=== PATIENT | male | born 1990 | race Caucasian/White ===

== ENCOUNTER 2020-05-11 14:34 | Emergency (ER) | payer MEDICAID, SELFPAY ==
[2020-05-11 14:44] VITALS: BP 159/98; PULSE 64; RESP 16; TEMP 36.7; O2SAT 97; BMI 33.5
--- NOTE | 2020-05-11 15:03 | HMH.EDUTC ---
[facility] [place] Disposition Clinical Impression: Anxiety Disposition: Home, Self-Care Condition on Discharge: Good Instructions: Anxiety Disorders, Anxiety and Panic Attacks (Alternative Therapy), DI for Anxiety -- Adult, Sertraline Additional Instructions: Take medication as prescribed Follow up with Family Doctor if no improvement or any worsening of symptoms Return if needed Straight to ER if any life threatening symptoms or if they return or worsen Your Zoloft was called into [facility] with instructions for 25mg daily x 1 week then your dose will go up to 50mg daily Make sure to follow up with your Family Doctor and keep the appointment you was given with Jocelyne Canseco Return immediately if symptoms return or worsen Referrals: Gopi Goyal MD [Primary Care Provider] - As needed Jocelyne Canseco, MINA [Nurse Practitioner] - 07/24/20 3:00 pm Time of Disposition: 15:48 Medical Decision Making - Danny Inquiry Pt receiving controlled substance: No Danny was queried for this patient: No Vital Signs: 05/11/20 14:44 05/11/20 15:52 Temperature 98.1 F 98 F Temperature Source Oral Oral Pulse Rate 70 Pulse Rate [Radial] 64 Respiratory Rate 16 16 Blood Pressure 132/80 Blood Pressure [Right Arm] 159/98 H Blood Pressure Mean [Right Arm] 118 Blood Pressure Source Manual Cuff/ Palpation Blood Pressure Source [Right Arm] Automatic Cuff Blood Pressure Position Sitting Blood Pressure Position [Right Arm] Sitting 02 Sat by Pulse Oximetry 97 Oxygen Delivery Method Room Air Room Air - ECG Data Tracing #1 I reviewed this ECG and interpreted as documented below: ECG initial impression date: 05/11/20 ECG initial impression time: 15:21 Normal Sinus Rhythm: Yes Additional Comments: discussed with ER physician he viewed EKG and agreed NSR no acute finding - Physician Consults Physician Consulted: Jocelyne Canseco Time: 15:23 Reason -: Other (Behavioral Health) Comment/Response: Called clinic and spoke with [place] advised that Jocelyne Canseco was in a room with patient and would have her call when she come out awaiting call back [phone] Jocelyne Canseco called back and discussed patient with her and she scheduled patient in her office on Jul 24 at 3pm advised to start him on Zoloft and have him follow up with PCP next month to make sure that medication Medical Decision Narrative: Medication was discussed with pharmacy and called into [facility] patient to start zoloft 25mg daily x 1 week then 50mg daily as directed. Patient educated if he starts having any chest pain or life threatening symptoms immediately go to the ED and if he has any worsening of anxiety or thoughts of self harm or hurting others to go to the ED patient reports that he was under alot of stress with the new job and was worried that he may have COVID and loose his job [facility] [place] HPI - General Stated complaint: abd pain sob headache Time Seen by Provider: 05/11/20 15:05 Mode of Arrival: Ambulatory Source of Information: Patient Limitations: No Limitations Description of Symptoms (Recalled from Triage Doc. by RN): SOB, abd pain, chest pressure. HEENT Symptoms (Recalled from RN notes): No Resp Symptoms (Recalled from RN notes): Yes Skin Symptoms (Recalled from RN notes): No MS Symptoms (Recalled from RN notes): No Functional Status (Recalled from RN notes): wnl - History of Present Illness Provider Complaint: Patient states that he hasnt felt well for a couple days having some nasal congestion and drainage States that today he had some cramping like he was going to have diarrhea States that he read on the internet that these symptoms was associated with COVID and started to have anxiety and he began to feel a little anxious worried that he may have the virus States that at the time he was feeling so anxious and felt like when he was reading about the symptoms of COVID it made him more anxious like he couldnt get a good breath like his lungs was heav
--- NOTE | 2020-05-11 15:09 | ECG_ITS ---
APPROVED REPORT Exam: Resting ECG HR:77 bpm ECG Measurements Heart Rate 77 AXES MT 136 P 60 QRSd 108 QRS 62 QT 384 T 38 QTc 434 Conclusion Normal sinus rhythm with sinus arrhythmia Normal ECG Electronically signed by : Esdras Jj, 05/12/2020 14:33:25
[2020-05-11 15:52] VITALS: BP 132/80; PULSE 70; RESP 16; TEMP 36.6; O2SAT 98
== END 2020-05-11 15:52 | disposition home or self-care (01) ==
PROVIDERS: Emergency Provider Nurse Practitioner; PCP Family Medicine
DX: Z20.828 Contact with and (suspected) exposure to other viral communicable diseases (principal); F41.9 Anxiety disorder, unspecified; F17.210 Nicotine dependence, cigarettes, uncomplicated
CPT/HCPCS: 93005; 99201; U0003

== ENCOUNTER 2020-05-12 13:54 | Emergency (ER) | payer MEDICAID, SELFPAY ==
[2020-05-12 14:00] VITALS: BP 168/103; PULSE 98; RESP 19; TEMP 36.6; O2SAT 100; BMI 33.5
--- NOTE | 2020-05-12 14:07 | HMH.EDUTC ---
[facility] [place] Disposition Clinical Impression: Anxiety Disposition: Home, Self-Care Condition on Discharge: Good Instructions: DI for Anxiety -- Adult Additional Instructions: Follow up with Dr Goyal and Jocelyne Canseco Prescriptions: Propranolol HCl [Inderal LA] 80 mg PO DAILY 30 Days #30 cap.sa.24h Transmission Status: Received by [facility] # hydrOXYzine pamoate [Vistaril 25mg capsule] 25 mg PO Q6H PRN 10 Days #30 cap PRN Reason: Anxiety Transmission Status: Received by [facility] # Referrals: Gopi Goyal MD [Primary Care Provider] - Time of Disposition: 15:46 Medical Decision Making - Danny Inquiry Pt receiving controlled substance: No Vital Signs: 05/12/20 14:00 Temperature 97.9 F Temperature Source Oral Pulse Rate [Right Brachial] 98 H Respiratory Rate 19 Blood Pressure [Right Arm] 168/103 H Blood Pressure Mean [Right Arm] 124 Blood Pressure Source [Right Arm] Automatic Cuff Blood Pressure Position [Right Arm] Sitting 02 Sat by Pulse Oximetry 100 Oxygen Delivery Method Room Air - Lab Data Lab results reviewed: Yes: I reviewed the patient's lab results. Lab Results 05/12/20 14:30: WBC 15.8 H, RBC 5.66, Hgb 17.8, Hct 50.6, MCV 89.4, MCH 31.4 H, MCHC 35.2, RDW 12.8, Plt Count 225, MPV 8.6, Neut % (Auto) 75.9, Lymph % (Auto) 18.1, [place] % (Auto) 5.3, Eos % (Auto) 0.6, Baso % (Auto) 0.2, Neut # (Auto) 12.0 H, Lymph # (Auto) 2.9, [place] # (Auto) 0.9, Eos # (Auto) 0.1, Baso # (Auto) 0.0, Total Counted 100, Neutrophils % (Manual) 64, Lymphocytes % (Manual) 27, Monocytes % (Manual) 9, Platelet Estimate Normal, RBC Morphology Normal 05/12/20 14:30: Sodium 142, Potassium 3.8, Chloride 108 H, Carbon Dioxide 25, Anion Gap 12.8, BUN 6 L, Creatinine 0.70, Estimated Creat Clear 233, Estimated GFR 131, Est GFR ( Amer) 158, Glucose 124 H, Calcium 9.6, Total Bilirubin 0.4, AST 28, ALT 28, Alkaline Phosphatase 78, Total Protein 8.3 H, Albumin 4.7, Globulin 3.6 H, Albumin/Globulin Ratio 1.3, TSH 0.66 05/12/20 14:30: D-Dimer 0.27 Result diagrams: 05/12/20 14:30 05/12/20 14:30 Orders (Tests/Meds): ORDERS Category Date Time Status 12-lead EKG Request [ECG Request by /Barbara] Stat Y 05/12/20 14:14 Ordered - ECG Data Tracing #1 NSR without signs of ischemia ECG initial impression date: 05/12/20 ECG initial impression time: 14:25 Normal Sinus Rhythm: Yes [facility] [place] HPI - General Stated complaint: Stomach pain Time Seen by Provider: 05/12/20 14:07 - History of Present Illness Provider Complaint: Patient complains of stomach pain and anxiety. Seen yesterday at [facility] and started on Zoloft. He is anxious, jittery, short of breath. He started a new job this week and has been anxious ever since. He has no prior history of anxiety. He states that he feels short of breath, but is able to take a good breath and has no pain in his chest. He does have an upset stomach. He just feels like he can't calm down. Has appt with Jocelyne Canseco next week. No pain or swelling in either leg. No history of DVT or PE. He does smoke. Onset (ago): day(s) (5) Location: chest, abdomen Relieving factors: none Exacerbating factors: none Associated symptoms: denies other symptoms Treatments prior to arrival: none - Related Data Previous Rx's Medication Instructions Recorded Propranolol HCl [Inderal LA] 80 mg PO DAILY 30 Days #30 05/12/20 cap.sa.24h hydrOXYzine pamoate [Vistaril 25mg 25 mg PO Q6H PRN 10 Days #30 cap 05/12/20 capsule] Allergies Allergy/AdvReac Type Severity Reaction Status Date / Time No Known Allergies Allergy Verified 05/12/20 14:14 [facility] History - Hepatitis A Screen Attestation statement:: This patient has been screened for Hepatitis A risk factors. I have reviewed the patient's past medical history: Yes - Social History Smoking Status: Current every day smoker Tobacco Type: cigarettes # Packs/Day (cigarettes): 1 Alcohol Intake: nev
--- NOTE | 2020-05-12 14:24 | ECG_ITS ---
APPROVED REPORT Exam: Resting ECG HR:87 bpm ECG Measurements Heart Rate 87 AXES IL 144 P 63 QRSd 100 QRS 53 QT 370 T 49 QTc 445 Conclusion Normal sinus rhythm Normal ECG Electronically signed by : Blas Lux, 05/22/2020 16:28:40
[2020-05-12 14:50] LABS: Basophils % 0.2 % (0.1-2.0); Eosinophils # 0.1 K/mm3 (0.0-0.4); Eosinophils % 0.6 % (0.1-12.0); Hematocrit 50.6 % (42.0-52.0); Hemoglobin 17.8 g/dL (14.1-18.0); Lymphocytes # 2.9 K/mm3 (0.7-4.5); Lymphocytes % 18.1 % (10-50); Mean Corpuscular HGB Conc 35.2 g/dL (31.8-35.4); Mean Corpuscular Hemoglobin 31.4 pg (27.0-31.2); Mean Corpuscular Volume 89.4 fl (80-94); Mean Platelet Volume 8.6 fl (7.4-10.4); Monocytes # 0.9 K/mm3 (0.1-1.0); Monocytes % 5.3 % (1.7-9.3); Neutrophils % 75.9 % (37.0-80.0); Platelet Count 225 K/mm3 (142-424); Red Blood Count 5.66 M/mm3 (4.60-6.20); Red Cell Distribution Width 12.8 % (11.5-17.5); White Blood Count 15.8 K/mm3 (4.8-10.8)
[2020-05-12 14:52] LABS: MANUAL DIFFERENTIAL MANUAL DIFFERENTIAL (MANUAL DIFF)
[2020-05-12 14:57] LABS: Alanine Aminotransferase 28 U/L (12-78); Albumin Level 4.7 g/dl (3.5-5.0); Albumin/Globulin Ratio 1.3 (1.1-1.8); Alkaline Phosphatase 78 U/L (38-126); Anion Gap 12.8 mEq/L (5-15); Aspartate Amino Transferase 28 U/L (17-59); Bilirubin,Total 0.4 mg/dl (0.2-1.3); Blood Urea Nitrogen 6 mg/dl (9-20); Calcium 9.6 mg/dl (8.4-10.2); Carbon Dioxide 25 mmol/L (22.0-30.0); Chloride 108 mmol/L (98-107); Creatinine Clearance Estimated 233 mL/min (50-200); Estimated Glomerular Filt Rate 131 ml/min (>60); GFR (African American) 158 ML/MIN (>60); Globulin 3.6 g/dL (1.3-3.2); Glucose 124 mg/dl (74-100); Potassium 3.8 mmoL/L (3.5-5.1); Sodium 142 mmol/L (136-145); Total Protein,Serum 8.3 g/dl (6.3-8.2)
[2020-05-12 15:02] LABS: D-Dimer 0.27 ug/mL (0.15-8.0); Lymphocytes % 27 % (10-50); Monocytes % 9 % (2-9); Neutrophils % 64 % (42-76); Total Cells Counted 100
[2020-05-12 15:03] LABS: Platelet Estimate Normal; RBC Morphology Normal
[2020-05-12 15:28] LABS: Thyroid Stimulating Hormone 0.66 uIU/mL (0.465-4.68)
[2020-05-12 15:48] VITALS: BP 168/103; PULSE 98; RESP 19; TEMP 36.6; O2SAT 100
== END 2020-05-12 15:50 | disposition home or self-care (01) ==
PROVIDERS: Emergency Provider Physician Assistant; PCP Family Medicine
DX: F41.9 Anxiety disorder, unspecified (principal); R10.9 Unspecified abdominal pain; R06.02 Shortness of breath; F17.210 Nicotine dependence, cigarettes, uncomplicated
CPT/HCPCS: 80053; 84443; 85007; 85025; 85378; 93005; 99201

== ENCOUNTER 2020-05-13 11:13 | Emergency (ER) | payer MEDICAID, SELFPAY ==
--- NOTE | 2020-05-13 11:09 | ECG_ITS ---
APPROVED REPORT Exam: Resting ECG HR:76 bpm ECG Measurements Heart Rate 76 AXES DC 160 P 59 QRSd 94 QRS 44 QT 370 T 58 QTc 416 Conclusion Normal sinus rhythm with sinus arrhythmia Normal ECG Electronically signed by : Blas Lux, 05/19/2020 11:39:47
[2020-05-13 11:15] VITALS: BP 155/100; PULSE 78; RESP 15; TEMP 37; O2SAT 96; BMI 33.5
--- NOTE | 2020-05-13 11:18 | XR_ITS ---
PROCEDURE: XR CHEST 2V CLINICAL HISTORY: chest pain COMPARISON: No exams were available for comparison FINDINGS: The cardiomediastinal silhouette and pulmonary vascularity are within normal limits. The lungs are clear without infiltrates, suspicious nodules, or pleural effusions. No acute bony abnormalities. IMPRESSION: No acute findings. Dictated by: Chris Lopez MD 05/13/2020 14:44 Chris Lopez MD in [place] 05/13/2020 14:44
--- NOTE | 2020-05-13 11:21 | HMH.EDCP ---
ED Disposition Clinical Impression: Atypical chest pain, Gastritis Disposition: Home, Self-Care Condition on Discharge: Good Instructions: DI for Atypical Chest Pain Prescriptions: Ondansetron [Zofran 4mg ODT] 4 mg PO TIDP PRN #10 tab PRN Reason: Nausea Transmission Status: Pending to [facility] #[id number] Referrals: Gopi Goyal MD [Primary Care Provider] - - Critical Care Critical Care Time: No Attestation: On , the high probability of a clinically significant, sudden or life threatening deterioration of the following system(s) required my full and direct attention, intervention and personal management. The time I documented below is in addition to time spent performing reported procedures but includes the following listed in this critical care notation. Medical Decision Making - Medical Records Medical records reviewed: Yes: I reviewed the patient's medical records. - Danny Inquiry Pt receiving controlled substance: No Vital Signs: 05/13/20 11:15 05/13/20 11:53 05/13/20 12:38 Temperature 98.6 F Temperature Source Oral Pulse Rate [Right Radial] 78 57 L 48 L Respiratory Rate 15 20 17 Blood Pressure [Right Arm] 155/100 H 130/81 149/103 H Blood Pressure Mean [Right Arm] 118 97 118 Blood Pressure Source [Right Arm] Automatic Cuff Blood Pressure Position [Right Arm] Sitting 02 Sat by Pulse Oximetry 96 98 98 Oxygen Delivery Method Room Air Room Air - Lab Data Lab Results 05/13/20 11:25: WBC 15.8 H, RBC 5.52, Hgb 17.4, Hct 50.5, MCV 91.4, MCH 31.6 H, MCHC 34.6, RDW 13.2, Plt Count 227, MPV 8.4, Neut % (Auto) 74.5, Lymph % (Auto) 18.7, [place] % (Auto) 6.0, Eos % (Auto) 0.5, Baso % (Auto) 0.3, Neut # (Auto) 11.8 H, Lymph # (Auto) 3.0, [place] # (Auto) 1.0, Eos # (Auto) 0.1, Baso # (Auto) 0.1, Total Counted 100, Neutrophils % (Manual) 75, Lymphocytes % (Manual) 22, Monocytes % (Manual) 3, Platelet Estimate Normal, RBC Morphology Normal 05/13/20 11:25: Troponin I < 0.01 05/13/20 11:25: Sodium 142, Potassium 3.8, Chloride 107, Carbon Dioxide 26, Anion Gap 12.8, BUN 7 L, Creatinine 0.70, Estimated Creat Clear 233, Estimated GFR 131, Est GFR ( Amer) 158, Glucose 130 H, Calcium 9.3 05/13/20 11:25: NT-Pro-B Natriuret Pep 74.9 Result diagrams: 05/13/20 11:25 05/13/20 11:25 Orders (Tests/Meds): ED MEDICATIONS Discontinued Medications Generic Name Dose Route Start Last Admin Trade Name Freq PRN Reason Stop Dose Admin Ketorolac Tromethamine 30 mg 05/13/20 11:21 05/13/20 11:37 Ketorolac 30mg/Ml Vial IM 05/13/20 11:22 Not Given ONCE ONE Ketorolac Tromethamine 30 mg 05/13/20 11:36 05/13/20 11:37 Ketorolac 30mg/Ml Vial IV 05/13/20 11:37 30 mg ONCE ONE Administration Ondansetron HCl 4 mg 05/13/20 11:21 05/13/20 11:37 Ondansetron 4mg/2ml Vial IV 05/13/20 11:22 4 mg ONCE ONE Administration Promethazine HCl 25 mg 05/13/20 12:29 05/13/20 12:34 Promethazine Hcl 25mg/Ml 1ml Vial IV 05/13/20 12:30 25 mg ONCE ONE Administration Sodium Chloride 25 ml 05/13/20 12:29 05/13/20 12:34 Sodium Chloride 0.9% 25ml Bag IV 05/13/20 12:30 25 ml ONCE ONE Administration ORDERS Category Date Time Status XR chest 2V Stat Exams 05/13/20 11:18 Ordered Troponin I Q3H Lab 05/13/20 14:30 Ordered Troponin I Q3H Lab 05/13/20 17:30 Ordered - Radiology Data #1 Image(s): Chest Image Reviewed: Yes I reviewed the patient's radiology results, Yes I reviewed the patient's radiology image Preliminary Findings: Normal/NAD - ECG Data Tracing #1 Normal ventricular rate of 76 bpm. Normal FL interval of 160 ms. Normal QTC. Sinus rhythm with nonspecific ST changes. ECG initial impression date: 05/13/20 ECG initial impression time: 11:11 - Reevaluation(s) Time: 13:08 Reevaluation #1: On reevaluation, the patient is feeling much better. Negative troponin. Negative D-dimer. EKG does not show any significant changes. The luna
--- NOTE | 2020-05-13 11:46 | PC.NURSE ---
pt return from rad
[2020-05-13 11:53] VITALS: BP 130/81; PULSE 57; RESP 20; O2SAT 98
[2020-05-13 12:04] LABS: Chloride 107 mmol/L (98-107); Potassium 3.8 mmoL/L (3.5-5.1); Sodium 142 mmol/L (136-145)
[2020-05-13 12:05] LABS: Basophils # 0.1 K/mm3 (0-0.2); Basophils % 0.3 % (0.1-2.0); Eosinophils # 0.1 K/mm3 (0.0-0.4); Eosinophils % 0.5 % (0.1-12.0); Hematocrit 50.5 % (42.0-52.0); Hemoglobin 17.4 g/dL (14.1-18.0); Lymphocytes % 18.7 % (10-50); Mean Corpuscular HGB Conc 34.6 g/dL (31.8-35.4); Mean Corpuscular Hemoglobin 31.6 pg (27.0-31.2); Mean Corpuscular Volume 91.4 fl (80-94); Mean Platelet Volume 8.4 fl (7.4-10.4); Neutrophils # 11.8 K/mm3 (1.8-7.8); Neutrophils % 74.5 % (37.0-80.0); Platelet Count 227 K/mm3 (142-424); Red Blood Count 5.52 M/mm3 (4.60-6.20); Red Cell Distribution Width 13.2 % (11.5-17.5); White Blood Count 15.8 K/mm3 (4.8-10.8)
[2020-05-13 12:06] LABS: MANUAL DIFFERENTIAL MANUAL DIFFERENTIAL (MANUAL DIFF)
[2020-05-13 12:07] LABS: Anion Gap 12.8 mEq/L (5-15); Blood Urea Nitrogen 7 mg/dl (9-20); Carbon Dioxide 26 mmol/L (22.0-30.0); Creatinine Clearance Estimated 233 mL/min (50-200); Estimated Glomerular Filt Rate 131 ml/min (>60); GFR (African American) 158 ML/MIN (>60); Glucose 130 mg/dl (74-100)
[2020-05-13 12:08] LABS: Calcium 9.3 mg/dl (8.4-10.2)
[2020-05-13 12:18] LABS: Lymphocytes % 22 % (10-50); Monocytes % 3 % (2-9); Neutrophils % 75 % (42-76); Platelet Estimate Normal; RBC Morphology Normal; Total Cells Counted 100
[2020-05-13 12:38] VITALS: BP 149/103; PULSE 48; RESP 17; O2SAT 98
[2020-05-13 12:42] LABS: NT Pro Brain Natriuretic Pep. 74.9 pg/mL (0-125)
[2020-05-13 12:46] LABS: Troponin I < 0.01 ng/ml (0.00-0.034)
[2020-05-13 13:38] VITALS: BP 128/90; PULSE 56; RESP 16; TEMP 36.8; O2SAT 98
== END 2020-05-13 13:39 | disposition home or self-care (01) ==
PROVIDERS: Emergency Provider Emergency Medicine; PCP Family Medicine
DX: R07.89 Other chest pain (principal); K52.9 Noninfective gastroenteritis and colitis, unspecified; F17.210 Nicotine dependence, cigarettes, uncomplicated
CPT/HCPCS: 71046; 80048; 83880; 84484; 85007; 85025; 93005; 96374; 96375; 99283; J2405

== ENCOUNTER 2020-07-07 10:20 | Emergency (ER) | payer MEDICAID, SELFPAY ==
[2020-07-07 10:30] VITALS: BP 158/89; PULSE 81; RESP 20; TEMP 36.9; O2SAT 98; BMI 37.6
--- NOTE | 2020-07-07 10:37 | HMH.EDUTC ---
[facility] [place] Clinical Impression: Exposure to COVID-19 virus Disposition: Home, Self-Care Condition on Discharge: Good Instructions: Preventing the Spread of Coronavirus Discharge Instructions Additional Instructions: You have been tested for COVID19. Please isolate as if you are positive until your results are received. Referrals: Roro Vela APRN [Primary Care Provider] - Time of Disposition: 10:44 Medical Decision Making - Danny Inquiry Pt receiving controlled substance: No Orders (Tests/Meds): ORDERS Category Date Time Status Covid-19 Nasal PCR Sendout P&C Routine Lab 07/07/20 10:24 Ordered [facility] [place] HPI - General Stated complaint: Covid test Time Seen by Provider: 07/07/20 10:37 - History of Present Illness Provider Complaint: Patient states that coworker tested positive for COVID19 last week and he would like to be tested. Relieving factors: none Exacerbating factors: none Associated symptoms: denies other symptoms Treatments prior to arrival: none - Related Data Home Medications Medication Instructions Recorded Confirmed Propranolol HCl [Inderal LA] 80 mg PO DAILY 05/13/20 05/13/20 Previous Rx's Medication Instructions Recorded hydrOXYzine pamoate [Vistaril 25mg 25 mg PO Q6H PRN 10 Days #30 cap 05/12/20 capsule] Ondansetron [Zofran 4mg ODT] 4 mg PO TIDP PRN #10 tab 05/13/20 Allergies Allergy/AdvReac Type Severity Reaction Status Date / Time No Known Allergies Allergy Verified 05/13/20 11:21 [facility] History - Hepatitis A Screen Attestation statement:: This patient has been screened for Hepatitis A risk factors. I have reviewed the patient's past medical history: Yes Medical History: Denies:: Diabetes Mellitus Type 1, Diabetes Mellitus Type 2 - Social History Smoking Status: Current every day smoker Tobacco Type: cigarettes # Packs/Day (cigarettes): 1 Alcohol Intake: never Occupational Status: employed ROS Obtained: Yes All systems reviewed & no additional complaints Physical Exam - General General appearance: alert, in no apparent distress - Head Head exam: normocephalic - Eye Eye exam: Present: PERRL - ENT ENT exam: Present: normal oropharynx - Respiratory Respiratory exam: Present: normal lung sounds bilaterally - Cardiovascular Cardiovascular exam: Present: regular rate, normal rhythm - Neurological Exam Neurological exam: Present: alert, oriented X3 - Psychiatric Psychiatric exam: Present: normal affect, normal mood - Skin Skin exam: Present: warm, dry
[2020-07-07 10:58] VITALS: BP 158/89; PULSE 81; RESP 20; TEMP 36.9; O2SAT 98
[2020-07-08 10:58] LABS: Covid-19 Nasal PCR Sendout P&C NEGATIVE
== END 2020-07-07 11:00 | disposition home or self-care (01) ==
PROVIDERS: Emergency Provider Physician Assistant; PCP Nurse Practitioner Family
DX: Z20.828 Contact with and (suspected) exposure to other viral communicable diseases (principal); F17.210 Nicotine dependence, cigarettes, uncomplicated
CPT/HCPCS: 99201; U0004

== ENCOUNTER → 2020-08-09 09:39 | Outpatient (CLI) | payer BC, OTHER, SELFPAY ==
--- NOTE | 2020-08-09 09:53 | CT_ITS ---
PROCEDURE: CT ABDOMEN PELVIS W CON CLINICAL INDICATION: ABD PAIN LUQ Luq pain x2 months, nausia Iso 370, 75 ml COMPARISON: No exams were available for comparison TECHNIQUE: IV Contrast: 75ML Isovue 370 Oral Contrast None Axial images obtained with sagittal and coronal reformats. All CT scans at the facility use one or more dose reduction, viz: automated exposure control, ma/kV adjustment per patient size (including targeted exams where dose is matched to indication, i.e. head), or iterative reconstruction technique. FINDINGS: LOWER THORAX: No acute finding ABDOMEN & PELVIS: The liver, spleen adrenal glands pancreas and gallbladder have an unremarkable appearance. There is a nonobstructing 3 mm stone in the mid polar region of the left kidney. There are few scattered small mesenteric lymph nodes. No intestinal obstruction or free air. The appendix is prominent measuring 8 mm in diameter but is air-filled and with no stranding of the periappendiceal fat. There is mild thickening of the descending and sigmoid colon and rectosigmoid region. No evidence of diverticulitis. There are few small diverticula present. No acute bony findings. There are few scattered small inguinal nodes. IMPRESSION: Mild thickening of the descending and sigmoid colon and rectosigmoid region. This may only be due to nondistention versus mild colitis. 1. Nonobstructing left nephrolithiasis. Dictated by: Chris Lopez MD 08/10/2020 12:35 Chris Lopez MD in [place] 08/10/2020 12:35
== END ==
PROVIDERS: PCP Nurse Practitioner Family; Visit Provider Physician Assistant
DX: R10.12 Left upper quadrant pain (principal)
CPT/HCPCS: 74177; Q9967

== ENCOUNTER 2020-08-29 13:30 | Emergency (ER) | payer BC, OTHER, SELFPAY ==
[2020-08-29 13:45] VITALS: BP 180/106; PULSE 105; RESP 14; TEMP 37.3; O2SAT 98; BMI 32.1
--- NOTE | 2020-08-29 14:04 | HMH.EDUTC ---
[facility] [place]: [place] Disposition: Home, Self-Care Condition on Discharge: Good Instructions: Metronidazole, DI for Colitis Additional Instructions: Drink plenty of fluids. Take tylenol for pain or fever. Return and go to the er if you have worsening symptoms. Follow up with your regular doctor. Follow up with the GI specialist as scheduled. GO TO THE ER FOR ANY WORSENING SYMPTOMS DO NOT DRINK ALCOHOL WHILE YOU ARE ON THE METRONIDAZOLE (FLAGYL) . Prescriptions: Ciprofloxacin HCl [Ciprofloxacin 500mg Tab] 500 mg PO BID 10 Days #20 tab Transmission Status: Received by [facility] # metroNIDAZOLE [Metronidazole] 250 mg PO TID 10 Days #30 tab Transmission Status: Received by [facility] # Referrals: Eleonora Brown PA [Primary Care Provider] - Forms: Work/School Release Time of Disposition: 14:21 Medical Decision Making - Medical Records Medical records reviewed: No: I reviewed the patient's medical records. - Danny Inquiry Pt receiving controlled substance: No Vital Signs: 08/29/20 13:45 08/29/20 14:24 Temperature 99.1 F 99.2 F Temperature Source Oral Oral Pulse Rate 105 H Pulse Rate [Right] 105 H Respiratory Rate 14 16 Blood Pressure 175/102 H Blood Pressure [Right Arm] 180/106 H Blood Pressure Mean [Right Arm] 130 Blood Pressure Source Automatic Cuff Blood Pressure Source [Right Arm] Automatic Cuff Blood Pressure Position Sitting Blood Pressure Position [Right Arm] Sitting 02 Sat by Pulse Oximetry 98 Oxygen Delivery Method Room Air [facility] [place] - General Stated complaint: possible colitis Time Seen by Provider: 08/29/20 13:50 Mode of Arrival: Ambulatory Source of Information: Patient Limitations: No Limitations Description of Symptoms (Recalled from Triage Doc. by RN): abd pain. pt states he saw his family dr for colitis. it started again last nigt. he says antibiotics helped. he had a GI appointment yesterday that he was unable to make. HEENT Symptoms (Recalled from RN notes): No Resp Symptoms (Recalled from RN notes): No Skin Symptoms (Recalled from RN notes): No MS Symptoms (Recalled from RN notes): No Functional Status (Recalled from RN notes): na - History of Present Illness Provider Complaint: He states that since yesterday he has had abdominal discomfort. He states that this feels just like he did when he had colitis around 3 weeks ago. At that time a ct scan of abd/pelvis was done and it did show some colitis. He was treated with an antibiotic then and he got better very quickly. Now he states that his symptoms are returning. He could not get in with his pcp today. He has an appt with GI specialist coming up. - Related Data Home Medications Medication Instructions Recorded Confirmed Propranolol HCl [Inderal LA] 80 mg PO DAILY 05/13/20 05/13/20 Previous Rx's Medication Instructions Recorded hydrOXYzine pamoate [Vistaril 25mg 25 mg PO Q6H PRN 10 Days #30 cap 05/12/20 capsule] Ondansetron [Zofran 4mg ODT] 4 mg PO TIDP PRN #10 tab 05/13/20 Ciprofloxacin HCl [Ciprofloxacin 500 mg PO BID 10 Days #20 tab 08/29/20 500mg Tab] metroNIDAZOLE [Metronidazole] 250 mg PO TID 10 Days #30 tab 08/29/20 Allergies Allergy/AdvReac Type Severity Reaction Status Date / Time No Known Allergies Allergy Verified 08/29/20 13:43 - Worker's Comp Is this a Worker's Comp case?: No [facility] History - Hepatitis A Screen Drug use history?: No High risk sexual behaviors?: No History of sexually transmitted infection?: No Currently employed?: No Childcare worker?: No Do you have indoor plumbing?: Yes Do you have electricity?: Yes Attestation statement:: This patient has been screened for Hepatitis A risk factors. I have reviewed the patient's past medical history: Yes Medical History: Denies:: Diabetes Mellitus Type 1, Diabetes Mellitus Type 2 - Social History Smoking Status: Current every
[2020-08-29 14:24] VITALS: BP 175/102; PULSE 105; RESP 16; TEMP 37.3
== END 2020-08-29 14:25 | disposition home or self-care (01) ==
PROVIDERS: Emergency Provider Nurse Practitioner Family; PCP Physician Assistant
DX: K52.9 Noninfective gastroenteritis and colitis, unspecified (principal); F17.210 Nicotine dependence, cigarettes, uncomplicated; R03.0 Elevated blood-pressure reading, without diagnosis of hypertension
CPT/HCPCS: 99202; G0463

== ENCOUNTER 2020-11-29 10:18 | Emergency (ER) | payer OTHER, SELFPAY ==
[2020-11-29 10:39] VITALS: BP 140/91; PULSE 78; RESP 19; TEMP 37; O2SAT 100; BMI 32.1
--- NOTE | 2020-11-29 11:17 | HMH.EDUTC ---
[facility] [place] Disposition Clinical Impression: Colitis Disposition: Home, Self-Care Condition on Discharge: Good Instructions: DI for Colitis Additional Instructions: Drink plenty of fluids. Take tylenol or ibuprofen for pain or fever. Take the medications as directed. Follow up with your regular doctor. GO TO THE ER FOR ANY WORSENING SYMPTOMS Prescriptions: Ondansetron [Zofran 4mg ODT] 4 mg PO Q8HP PRN #20 tab.rapdis PRN Reason: Nausea Transmission Status: Received by [facility] # Ciprofloxacin HCl [Cipro 500mg Tab] 500 mg PO BID 10 Days #20 tab Transmission Status: Received by [facility] # metroNIDAZOLE [Flagyl 500mg Tablet] 500 mg PO TID 10 Days #30 tab Transmission Status: Received by [facility] # Referrals: Eleonora Brown PA [Primary Care Provider] - Forms: Work/School Release Time of Disposition: 11:20 Medical Decision Making - Medical Records Medical records reviewed: No: I reviewed the patient's medical records. - Danny Inquiry Pt receiving controlled substance: No Vital Signs: 11/29/20 10:39 11/29/20 11:20 Temperature 98.6 F 98.6 F Temperature Source Oral Pulse Rate 78 Pulse Rate [Left] 78 Respiratory Rate 19 19 Blood Pressure 140/91 H Blood Pressure [Right Arm] 140/91 H Blood Pressure Mean [Right Arm] 107 02 Sat by Pulse Oximetry 100 [facility] [place] HPI - General Stated complaint: possible colitis Time Seen by Provider: 11/29/20 11:17 Mode of Arrival: Ambulatory Source of Information: Patient Limitations: No Limitations Description of Symptoms (Recalled from Triage Doc. by RN): collitis flare up needing antibiotis HEENT Symptoms (Recalled from RN notes): No Resp Symptoms (Recalled from RN notes): No Skin Symptoms (Recalled from RN notes): No MS Symptoms (Recalled from RN notes): No Functional Status (Recalled from RN notes): wnl - History of Present Illness Provider Complaint: He states that he has a history of getting colitis. For the past 2 days he has had mild abdominal discomfort, diarrhea and abdominal cramping. He denies any fever or chills. - Related Data Home Medications Medication Instructions Recorded Confirmed Propranolol HCl [Inderal LA] 80 mg PO DAILY 05/13/20 05/13/20 Previous Rx's Medication Instructions Recorded hydrOXYzine pamoate [Vistaril 25mg 25 mg PO Q6H PRN 10 Days #30 cap 05/12/20 capsule] Ondansetron [Zofran 4mg ODT] 4 mg PO TIDP PRN #10 tab 05/13/20 Ciprofloxacin HCl [Ciprofloxacin 500 mg PO BID 10 Days #20 tab 08/29/20 500mg Tab] metroNIDAZOLE [Metronidazole] 250 mg PO TID 10 Days #30 tab 08/29/20 Ciprofloxacin HCl [Cipro 500mg 500 mg PO BID 10 Days #20 tab 11/29/20 Tab] Ondansetron [Zofran 4mg ODT] 4 mg PO Q8HP PRN #20 tab.rapdis 11/29/20 metroNIDAZOLE [Flagyl 500mg 500 mg PO TID 10 Days #30 tab 11/29/20 Tablet] Allergies Allergy/AdvReac Type Severity Reaction Status Date / Time No Known Allergies Allergy Verified 11/29/20 11:01 - Worker's Comp Is this a Worker's Comp case?: No [facility] History - Hepatitis A Screen Drug use history?: No High risk sexual behaviors?: No History of sexually transmitted infection?: No Currently employed?: No Childcare worker?: No Do you have indoor plumbing?: Yes Do you have electricity?: Yes Attestation statement:: This patient has been screened for Hepatitis A risk factors. I have reviewed the patient's past medical history: Yes Medical History: Denies:: Diabetes Mellitus Type 1, Diabetes Mellitus Type 2 - Social History Smoking Status: Current every day smoker Tobacco Type: cigarettes # Packs/Day (cigarettes): 1 Alcohol Intake: never Occupational Status: employed ROS Obtained: Yes All systems reviewed & no additional complaints - Constitutional Constitutional: Reports chills, Denies fever(s), Reports poor appetite, Reports malaise - Eyes Eyes: Denies eye discharge - ENT Ears,
[2020-11-29 11:20] VITALS: BP 140/91; PULSE 78; RESP 19; TEMP 37; O2SAT 100
== END 2020-11-29 11:31 | disposition home or self-care (01) ==
PROVIDERS: Emergency Provider Nurse Practitioner Family; PCP Physician Assistant
DX: K52.9 Noninfective gastroenteritis and colitis, unspecified (principal); F17.210 Nicotine dependence, cigarettes, uncomplicated
CPT/HCPCS: 99202; G0463

== ENCOUNTER 2020-12-20 10:43 | Emergency (ER) | payer OTHER, SELFPAY ==
[2020-12-20 11:24] VITALS: BP 151/84; PULSE 80; RESP 16; TEMP 36.8; O2SAT 99; BMI 29.8
--- NOTE | 2020-12-20 12:02 | HMH.EDUTC ---
[facility] [place] Clinical Impression: Diarrhea Qualifiers: Diarrhea type: unspecified type Qualified Code(s): R19.7 - Diarrhea, unspecified Disposition: Home, Self-Care Condition on Discharge: Good Instructions: Diarrhea, DI for Nausea -- Adult Additional Instructions: Drink extra fluids with and between meals. If you have difficulty drinking, try very small amounts of water or suck on ice chips. ? Avoid fruit juices, as these do not replace minerals and can actually increase diarrhea. ? Children and adults can use sports drinks to replenish electrolytes. Younger children and infants should use products formulated for children, like oral rehydration solutions. ? Eat food in small amounts and let your stomach recover. ? Get lots of rest. You may feel tired or weak. ? No greasy or fried foods for the next 24-48 hours BRAT diet Bananas Rice Apples and [place] ? Make sure to drink plenty of liquids ? Return if needed ? Straight to ER if any life threatening symptoms ? Zofran as prescribed ? You was given an outpatient order for diarrhea panel, please collect specimen and bring back to outpatient lab then call back to the [facility] or follow up with family doctor for results ? Follow up with family doctor in the next 48-72 hours if no improvement or any worsening of symptoms Prescriptions: Dicyclomine HCl [Bentyl 10mg capsule] 10 mg PO TID PRN #15 cap PRN Reason: Cramping Transmission Status: Received by [facility] #[id number] Referrals: Eleonora Brown PA [Primary Care Provider] - As needed (Follow up if no improvement or any worsening of symptoms) Forms: Work/School Release Time of Disposition: 12:18 Medical Decision Making - Danny Inquiry Pt receiving controlled substance: No Danny was queried for this patient: No Vital Signs: 12/20/20 11:24 12/20/20 12:18 Temperature 98.3 F 98 F Temperature Source Oral Pulse Rate 85 Pulse Rate [Right] 80 Respiratory Rate 16 16 Blood Pressure 149/85 H Blood Pressure [Right Arm] 151/84 H Blood Pressure Mean [Right Arm] 106 Blood Pressure Source [Right Arm] Automatic Cuff 02 Sat by Pulse Oximetry 99 Oxygen Delivery Method Room Air Medical Decision Narrative: Discussed transfer to the ED with patient if he was having abdominal pain and patient declined unknown if he may have been exposed to someone with the stomach virus Discussed with patient that we could order diarrhea panel due to recent antibiotic use and if negative follow up with PCP for further [facility] [place] - General Stated complaint: vomiting,nausea Time Seen by Provider: 12/20/20 12:02 Mode of Arrival: Ambulatory Source of Information: Patient Limitations: No Limitations Description of Symptoms (Recalled from Triage Doc. by RN): pt dx with colitis in june. pt was seen here 2wks ago and given a 10 day antibiotic. once finished pt has c/o abd pain in all quadrents. pain is 5/10 and feels like cramps. HEENT Symptoms (Recalled from RN notes): No Resp Symptoms (Recalled from RN notes): No Skin Symptoms (Recalled from RN notes): No MS Symptoms (Recalled from RN notes): No Functional Status (Recalled from RN notes): na - History of Present Illness Provider Complaint: Patient state that he had Colitis in [facility] States that he came in a couple weeks ago and was treated again for Colitis and he has since finished the medication State that for the last couple of days he has been having diarrhea and cramping in his abdomen States that not sure if he may have been around someone with the stomach bug or his colitis acting up again. - Related Data Home Medications Medication Instructions Recorded Confirmed Propranolol HCl [Inderal LA] 80 mg PO DAILY 05/13/20 05/13/20 Previous Rx's Medication Instructions Recorded hydrOXYzine pamoate [Vistaril 25mg 25 mg PO Q6H PRN 10 Days #30 cap 05/12/20 capsule] Ondansetron [Zofran 4mg ODT] 4 mg PO TIDP PRN #10 tab 05/13/20 Ciprofloxacin HCl [Ciprofloxacin 500 mg
[2020-12-20 12:18] VITALS: BP 149/85; PULSE 85; RESP 16; TEMP 36.6
== END 2020-12-20 12:33 | disposition home or self-care (01) ==
PROVIDERS: Emergency Provider Nurse Practitioner; PCP Physician Assistant
DX: R11.2 Nausea with vomiting, unspecified (principal); R19.7 Diarrhea, unspecified; F17.210 Nicotine dependence, cigarettes, uncomplicated
CPT/HCPCS: 99202; G0463

== ENCOUNTER → 2020-12-21 12:49 | Outpatient (CLI) | payer OTHER, SELFPAY ==
[2020-12-21 12:55] LABS: Adenovirus F 40/41, stool Not Detected (NotDetected); Astrovirus Not Detected (NotDetected); Campylobacter Not Detected (NotDetected); Clostridium Difficile A/B, PCR Not Detected (NotDetected); Cryptosporidium Not Detected (NotDetected); Cyclospora Cayetanesis Not Detected (NotDetected); Entamoeba histolytica Not Detected (NotDetected); Enteroaggregative E coli Not Detected (NotDetected); Enteropathogenic E coli Not Detected (NotDetected); Enterotoxigenic E coli Not Detected (NotDetected); Giardia lamblia Not Detected (NotDetected); Norovirus Not Detected (NotDetected); Plesimonas Shigalloides, PCR Not Detected (NotDetected); Rotavirus A Not Detected (NotDetected); Salmonella, PCR Not Detected (NotDetected); Sapovirus Not Detected (NotDetected); Shiga-like toxin E coli Not Detected (NotDetected); Shigella Enterovasive E coli Not Detected (NotDetected); Vibrio Cholerae Not Detected (NotDetected); Vibrio, PCR Not Detected (NotDetected); Yersinia Entercolitica, PCR Not Detected (NotDetected)
== END ==
PROVIDERS: Visit Provider Nurse Practitioner
DX: R19.7 Diarrhea, unspecified (principal)
CPT/HCPCS: 87507

== ENCOUNTER 2021-01-05 15:59 | Emergency (ER) | payer OTHER, SELFPAY ==
[2021-01-05 16:00] VITALS: BP 128/72; PULSE 62; RESP 18; TEMP 36.8; O2SAT 95; BMI 32.5
--- NOTE | 2021-01-05 16:54 | HMH.EDUTC ---
[facility] [place] Disposition Clinical Impression: Cellulitis of right hand, Abscess of right hand Disposition: Home, Self-Care Condition on Discharge: Good Instructions: Cellulitis, Boil Additional Instructions: Keep the affected area clean and dry. Follow up with your regular doctor. Take the antibiotics as directed and apply the topical antibiotics as directed. Apply warm wet compresses to the affected area three or four times per day. GO TO THE ER FOR ANY WORSENING SYMPTOMS Prescriptions: Sulfamethoxazole/Trimethoprim [Bactrim DS tablet] 1 each PO BID 10 Days #20 tab Transmission Status: Received by [facility] #[id number] Mupirocin [Bactroban 2% Ointment 22gm tube] 1 applicatio TP TID 7 Days #1 tube Transmission Status: Received by [facility] #[id number] cephALEXin [cephALEXin 500mg capsule] 500 mg PO Q6H 10 Days #40 cap Transmission Status: Received by [facility] #[id number] Referrals: Eleonora Brown PA [Primary Care Provider] - Forms: Work/School Release Time of Disposition: 17:12 Medical Decision Making - Medical Records Medical records reviewed: No: I reviewed the patient's medical records. - Danny Inquiry Pt receiving controlled substance: No Vital Signs: 01/05/21 16:00 01/05/21 17:10 Temperature 98.2 F 98.2 F Temperature Source Oral Pulse Rate 62 Pulse Rate [Right Brachial] 62 Respiratory Rate 18 18 Blood Pressure 128/72 Blood Pressure [Right Arm] 128/72 Blood Pressure Mean [Right Arm] 90 Blood Pressure Source [Right Arm] Automatic Cuff Blood Pressure Position [Right Arm] Sitting 02 Sat by Pulse Oximetry 95 Oxygen Delivery Method Room Air Orders (Tests/Meds): ED MEDICATIONS Discontinued Medications Generic Name Dose Route Start Last Admin Trade Name Freq PRN Reason Stop Dose Admin Ceftriaxone Sodium 1 gm 01/05/21 16:56 01/05/21 17:08 Ceftriaxone 1gm Vial IM 01/05/21 16:57 1 gm ONCE ONE Administration Protocol Lidocaine HCl 0 ml 01/05/21 16:56 01/05/21 17:09 Lidocaine 1% 5ml Pf Vial IM 01/05/21 16:57 2.1 ml ONCE ONE Administration [facility] [place] HPI - General Stated complaint: swelling in his left hand Time Seen by Provider: 01/05/21 16:54 Mode of Arrival: Ambulatory Source of Information: Patient Limitations: No Limitations Description of Symptoms (Recalled from Triage Doc. by RN): PATIENT C/O REDNESS, PAIN AND SWELLING TO LEFT MIDDLE FINGER X 1 WEEK HEENT Symptoms (Recalled from RN notes): No Resp Symptoms (Recalled from RN notes): No Skin Symptoms (Recalled from RN notes): No MS Symptoms (Recalled from RN notes): Yes Functional Status (Recalled from RN notes): WNL - History of Present Illness Provider Complaint: At the base of her middle finger on his left hand there is a swollen red area. He states that this has been present for the past week, but its getting worse. He denies any fever/chills. He denies any known injury. - Related Data Previous Rx's Medication Instructions Recorded Mupirocin [Bactroban 2% Ointment 1 applicatio TP TID 7 Days #1 tube 01/05/21 22gm tube] Sulfamethoxazole/Trimethoprim 1 each PO BID 10 Days #20 tab 01/05/21 [Bactrim DS tablet] cephALEXin [cephALEXin 500mg 500 mg PO Q6H 10 Days #40 cap 01/05/21 capsule] Allergies Allergy/AdvReac Type Severity Reaction Status Date / Time No Known Allergies Allergy Verified 11/29/20 11:01 - Worker's Comp Is this a Worker's Comp case?: No [facility] History - Hepatitis A Screen Drug use history?: No High risk sexual behaviors?: No History of sexually transmitted infection?: No Currently employed?: No Childcare worker?: No Do you have indoor plumbing?: Yes Do you have electricity?: Yes Attestation statement:: This patient has been screened for Hepatitis A risk factors. I have reviewed the patient's past medical history: Yes Medical History: Denies:: Diabetes Mellitus Type 1, Diabetes Mellitus Type 2 - Social His
[2021-01-05 17:10] VITALS: BP 128/72; PULSE 62; RESP 18; TEMP 36.8; O2SAT 95
== END 2021-01-05 17:15 | disposition home or self-care (01) ==
PROVIDERS: Emergency Provider Nurse Practitioner Family; PCP Physician Assistant
DX: L03.114 Cellulitis of left upper limb (principal); F17.210 Nicotine dependence, cigarettes, uncomplicated
CPT/HCPCS: 96372; 99202; G0463

== ENCOUNTER 2021-01-06 16:57 | Emergency (ER) | payer OTHER, SELFPAY ==
[2021-01-06 16:57] VITALS: BP 166/78; PULSE 59; RESP 16; TEMP 37.1; O2SAT 99; BMI 30.7
--- NOTE | 2021-01-06 17:19 | XR_ITS ---
PROCEDURE INFORMATION: Exam: XR Left Hand Exam date and time: 01/06/2021 5:19 PM Age: 30 years old Clinical indication: Pain; Finger(s) and hand; Left; Patient HX: Patient 3rd digit has redness/ tender to touch, PT stated felt like a callus then began to swell TECHNIQUE: Imaging protocol: XR Left hand. Views: 3 or more views. COMPARISON: No relevant prior studies available. FINDINGS: Bones/joints: There is no evidence of acute fracture. There is no evidence of joint malalignment or dislocation. Soft tissues: Soft tissue swelling noted at the base of the middle finger. IMPRESSION: 1. No evidence of acute fracture. 2. No evidence of acute dislocation. 3. Soft tissue swelling noted at the base of the middle finger.
--- NOTE | 2021-01-06 18:07 | HMH.EDUTC ---
[facility] [place] Clinical Impression: Cellulitis of finger of left hand Disposition: Home, Self-Care Condition on Discharge: Good Instructions: DI for Cellulitis -- Adult Additional Instructions: Start oral antibiotics tomorrow Referrals: Eleonora Brown PA [Primary Care Provider] - Time of Disposition: 18:13 Medical Decision Making - Danny Inquiry Pt receiving controlled substance: No Vital Signs: 01/06/21 16:57 Temperature 98.7 F Temperature Source Oral Pulse Rate [Apical] 59 L Respiratory Rate 16 Blood Pressure [Right Arm] 166/78 H Blood Pressure Mean [Right Arm] 107 Blood Pressure Source [Right Arm] Automatic Cuff Blood Pressure Position [Right Arm] Supine 02 Sat by Pulse Oximetry 99 Oxygen Delivery Method Room Air Orders (Tests/Meds): ED MEDICATIONS Discontinued Medications Generic Name Dose Route Start Last Admin Trade Name Freq PRN Reason Stop Dose Admin Lidocaine HCl 10 ml 01/06/21 17:34 Lidocaine 1% 10ml Mdv SQ 01/06/21 17:35 ONCE ONE - Radiology Data #1 Image(s): Hand Image Reviewed: Yes I reviewed the patient's radiology image Preliminary Findings: Normal/NAD, No Fracture Seen [facility] [place] HPI - General Stated complaint: lt hand swelling Time Seen by Provider: 01/06/21 17:45 Mode of Arrival: Ambulatory Source of Information: Patient Limitations: No Limitations Description of Symptoms (Recalled from Triage Doc. by RN): ledt hand and middle finger swollen HEENT Symptoms (Recalled from RN notes): No Resp Symptoms (Recalled from RN notes): No Skin Symptoms (Recalled from RN notes): No MS Symptoms (Recalled from RN notes): Yes Functional Status (Recalled from RN notes): na - History of Present Illness Provider Complaint: Patient has had pain and swelling in the left middle finger and hand for about a week. 2 days ago it got hot and red. 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 Today it looks worse. No trauma to his hand. Onset (ago): day(s) (2) Location: left, upper extremity Relieving factors: none Exacerbating factors: none Associated symptoms: denies other symptoms Treatments prior to arrival: none - Related Data Previous Rx's Medication Instructions Recorded Mupirocin [Bactroban 2% Ointment 1 applicatio TP TID 7 Days #1 tube 01/05/21 22gm tube] Sulfamethoxazole/Trimethoprim 1 each PO BID 10 Days #20 tab 01/05/21 [Bactrim DS tablet] cephALEXin [cephALEXin 500mg 500 mg PO Q6H 10 Days #40 cap 01/05/21 capsule] Allergies Allergy/AdvReac Type Severity Reaction Status Date / Time No Known Allergies Allergy Verified 11/29/20 11:01 - Worker's Comp Is this a Worker's Comp case?: No [facility] History - Hepatitis A Screen Drug use history?: No High risk sexual behaviors?: No History of sexually transmitted infection?: No Currently employed?: No Childcare worker?: No Do you have indoor plumbing?: Yes Do you have electricity?: Yes Attestation statement:: This patient has been screened for Hepatitis A risk factors. Medical History: Denies:: Diabetes Mellitus Type 1, Diabetes Mellitus Type 2 - Social History Smoking Status: Current every day smoker Tobacco Type: cigarettes, smokeless tobacco # Packs/Day (cigarettes): 1 Alcohol Intake: never Occupational Status: other ROS Obtained: Yes All systems reviewed & no additional complaints - Musculoskeletal Musculoskeletal: Reports as per HPI Physical Exam - General General appearance: alert, in no apparent distress - Head Head exam: atraumatic, normocephalic, normal inspection - Chest Chest inspection: Absent: tenderness - Respiratory Respiratory exam: Present: normal lung sounds bilaterally. Absent: respiratory distress - Cardiovascular Cardiovascular exam: Present: regular rate, normal rhythm - Extremities Exam Extremities exam: Present: full ROM, normal capillary refill - Expanded Upper Extremity Exam Left
[2021-01-06 18:31] VITALS: BP 166/78; PULSE 59; RESP 16; TEMP 37.1; O2SAT 99
== END 2021-01-06 18:35 | disposition home or self-care (01) ==
PROVIDERS: Emergency Provider Physician Assistant; PCP Physician Assistant
DX: L03.114 Cellulitis of left upper limb (principal); L03.012 Cellulitis of left finger; F17.210 Nicotine dependence, cigarettes, uncomplicated
CPT/HCPCS: 10060; 73130; 87070; 87077; 87186; 87205; 99202; G0463

== ENCOUNTER 2021-02-13 10:08 | Emergency (ER) | payer OTHER, SELFPAY ==
[2021-02-13 10:09] VITALS: BP 197/95; PULSE 71; RESP 18; O2SAT 97; BMI 30.7
--- NOTE | 2021-02-13 10:31 | HMH.EDUTC ---
[facility] [place]: [place] Disposition: Home, Self-Care Condition on Discharge: Good Instructions: DI for Colitis Additional Instructions: Make sure you see the GI specialist and have the colonoscopy done as discussed. Take the medication as directed. Follow up with you primary care doctor. GO TO THE ER FOR ANY WORSENING SYMPTOMS OR CONCERNS Prescriptions: Ondansetron [Zofran 4mg ODT] 4 mg PO Q8HP PRN #20 tab.rapdis PRN Reason: Nausea Transmission Status: Received by [facility] # predniSONE [Prednisone 20mg Tab] 20 mg PO BID 5 Days #10 tab Transmission Status: Received by [facility] # Referrals: Esdras Jj MD [Primary Care Provider] - Forms: Work/School Release Time of Disposition: 10:55 Medical Decision Making - Medical Records Medical records reviewed: No: I reviewed the patient's medical records. - Danny Inquiry Pt receiving controlled substance: No Vital Signs: 02/13/21 10:09 02/13/21 11:00 Temperature 98.6 F Temperature Source Oral Pulse Rate 71 Pulse Rate [Left Radial] 71 Respiratory Rate 18 18 Blood Pressure 197/95 H Blood Pressure [Right Arm] 197/95 H Blood Pressure Mean [Right Arm] 129 Blood Pressure Source Automatic Cuff Blood Pressure Source [Right Arm] Automatic Cuff Blood Pressure Position Sitting Blood Pressure Position [Right Arm] Sitting 02 Sat by Pulse Oximetry 97 Oxygen Delivery Method Room Air [facility] [place] - General Stated complaint: possible side effects from colitis Time Seen by Provider: 02/13/21 10:31 Mode of Arrival: Ambulatory Source of Information: Patient Limitations: No Limitations Description of Symptoms (Recalled from Triage Doc. by RN): c/o cramping with pain all over his abdomen. States he had a ct scan which showed colitis and is suppose to fu with the gi doctor this week. WAs given steroids by his family doctor and this improved his pain but he was unable to get in to see his family doctor today HEENT Symptoms (Recalled from RN notes): No Resp Symptoms (Recalled from RN notes): No Skin Symptoms (Recalled from RN notes): No MS Symptoms (Recalled from RN notes): No Functional Status (Recalled from RN notes): wnl - History of Present Illness Provider Complaint: He has a history of having issues with colitis. - Related Data Previous Rx's Medication Instructions Recorded Mupirocin [Bactroban 2% Ointment 1 applicatio TP TID 7 Days #1 tube 01/05/21 22gm tube] Sulfamethoxazole/Trimethoprim 1 each PO BID 10 Days #20 tab 01/05/21 [Bactrim DS tablet] cephALEXin [cephALEXin 500mg 500 mg PO Q6H 10 Days #40 cap 01/05/21 capsule] Ondansetron [Zofran 4mg ODT] 4 mg PO Q8HP PRN #20 tab.rapdis 02/13/21 predniSONE [Prednisone 20mg 20 mg PO BID 5 Days #10 tab 02/13/21 Tab] Allergies Allergy/AdvReac Type Severity Reaction Status Date / Time No Known Allergies Allergy Verified 01/19/21 10:50 - Worker's Comp Is this a Worker's Comp case?: No [facility] History - Hepatitis A Screen Drug use history?: No High risk sexual behaviors?: No History of sexually transmitted infection?: No Currently employed?: No Childcare worker?: No Do you have indoor plumbing?: Yes Do you have electricity?: Yes Attestation statement:: This patient has been screened for Hepatitis A risk factors. I have reviewed the patient's past medical history: Yes Medical History: Denies:: Diabetes Mellitus Type 1, Diabetes Mellitus Type 2 - Social History Smoking Status: Current every day smoker Tobacco Type: cigarettes, smokeless tobacco # Packs/Day (cigarettes): 1 Alcohol Intake: never Substance Use Type: denies use Occupational Status: other Family Hx:: No significant family history ROS Obtained: Yes All systems reviewed & no additional complaints - Constitutional Constitutional: Denies chills, Denies fever(s), Reports poor appetite, Reports malaise - Eyes Eye
[2021-02-13 11:00] VITALS: BP 197/95; PULSE 71; RESP 18; TEMP 37; O2SAT 97
== END 2021-02-13 11:06 | disposition home or self-care (01) ==
PROVIDERS: Emergency Provider Nurse Practitioner Family; PCP Internal Medicine Adolescent Medicine
DX: K52.9 Noninfective gastroenteritis and colitis, unspecified (principal); F17.210 Nicotine dependence, cigarettes, uncomplicated
CPT/HCPCS: 99202; G0463

== ENCOUNTER → 2021-02-14 15:39 | Outpatient (CLI) | payer OTHER, SELFPAY ==
--- NOTE | 2021-02-14 15:48 | MR_ITS ---
PROCEDURE: MR HEAD/BRAIN WO CON CLINICAL INDICATION: HEADACHES Pt c/o chronic headaches. COMPARISON: No exams were available for comparison TECHNIQUE: Routine multiplanar multi echo sequences are performed without gadolinium enhancement. FINDINGS: No midline shift, mass effect, intracranial hemorrhage, or hydrocephalus is evident. No evidence of acute infarction or restricted diffusion. The cerebellopontine angles, cerebellum, and brainstem have an unremarkable appearance. Unremarkable white matter signal intensity. The hippocampal gyri are unremarkable and the temporal horns are symmetric. The pituitary, optic chiasm, corpus callosum, and craniocervical junction an unremarkable appearance. No mastoid effusion or sinus air-fluid level. IMPRESSION: Negative MRI of the brain without contrast. Dictated by: Chris Lopez MD 02/15/2021 07:46 Chris Lopez MD in [place] 02/15/2021 07:46
== END ==
PROVIDERS: PCP Internal Medicine Adolescent Medicine; Visit Provider Internal Medicine Adolescent Medicine
DX: G44.59 Other complicated headache syndrome (principal)
CPT/HCPCS: 70551

== ENCOUNTER → 2021-02-15 13:17 | Outpatient (CLI) | payer OTHER, SELFPAY ==
[2021-02-15 13:47] LABS: Basophils # 0.1 K/mm3 (0-0.2); Basophils % 0.3 % (0.1-2.0); Eosinophils # 0.1 K/mm3 (0.0-0.4); Eosinophils % 0.4 % (0.1-12.0); Hemoglobin 17.1 g/dL (14.1-18.0); Lymphocytes % 25.7 % (10-50); Mean Corpuscular HGB Conc 32.9 g/dL (31.8-35.4); Mean Corpuscular Hemoglobin 30.6 pg (27.0-31.2); Mean Corpuscular Volume 93.1 fl (80-94); Mean Platelet Volume 7.6 fl (7.4-10.4); Monocytes # 1.1 K/mm3 (0.1-1.0); Monocytes % 6.9 % (1.7-9.3); Neutrophils # 10.4 K/mm3 (1.8-7.8); Neutrophils % 66.7 % (37.0-80.0); Platelet Count 236 K/mm3 (142-424); Red Blood Count 5.59 M/mm3 (4.60-6.20); White Blood Count 15.6 K/mm3 (4.8-10.8)
[2021-02-15 13:49] LABS: MANUAL DIFFERENTIAL MANUAL DIFFERENTIAL (MANUAL DIFF)
[2021-02-15 14:12] LABS: Erythrocyte Sedimentation Rate 4 mm/hr (0-15); Lymphocytes % 33 % (10-50); Monocytes % 9 % (2-9); Neutrophils % 58 % (42-76); Platelet Estimate Normal; RBC Morphology Normal; Total Cells Counted 100
[2021-02-15 14:15] LABS: Chloride 103 mmol/L (98-107); Potassium 4.8 mmoL/L (3.5-5.1); Sodium 141 mmol/L (136-145)
[2021-02-15 14:17] LABS: Blood Urea Nitrogen 13 mg/dl (9-20); Estimated Glomerular Filt Rate 111 ml/min (>60); GFR (African American) 135 ML/MIN (>60)
[2021-02-15 14:18] LABS: Alanine Aminotransferase 28 U/L (12-78); Albumin/Globulin Ratio 1.7 (1.1-1.8); Alkaline Phosphatase 59 U/L (38-126); Anion Gap 12.8 mEq/L (5-15); Aspartate Amino Transferase 27 U/L (17-59); Bilirubin,Total 0.5 mg/dl (0.2-1.3); Calcium 9.9 mg/dl (8.4-10.2); Carbon Dioxide 30 mmol/L (22.0-30.0); Glucose 95 mg/dl (74-100)
[2021-02-15 14:23] LABS: C-Reactive Protein 0.4 mg/L (0-4)
[2021-02-17 18:00] LABS: Deamidated Gliadin Abs, IgA 5 units (0-19); Deamidated Gliadin Abs, IgG 2 units (0-19); Tissue Transglutaminase IgA Ab <2 U/mL (0-3); Tissue Transglutaminase IgG Ab <2 U/mL (0-5)
[2021-02-19 17:33] LABS: Endomysial IgA Antibody Negative (Negative)
[2021-02-21 07:49] LABS: Reticulin IgA Antibody Negative titer (Neg:<1:2.5)
[2021-02-21 12:51] LABS: Saccharomyces cerevisiae, IgG 36.5 Units (0.0-24.9)
== END ==
PROVIDERS: Visit Provider Nurse Practitioner Family
DX: R10.84 Generalized abdominal pain (principal); R11.0 Nausea; R63.4 Abnormal weight loss; R19.4 Change in bowel habit
CPT/HCPCS: 36415; 80053; 83516; 85007; 85025; 85651; 86140; 86255; 86256; 86671

== ENCOUNTER → 2021-02-17 11:37 | Outpatient (CLI) | payer OTHER, SELFPAY | PROVIDERS: Visit Provider Internal Medicine Gastroenterology | DX: Z01.812 Encounter for preprocedural laboratory examination (principal); Z11.52 Encounter for screening for COVID-19; Z12.11 Encounter for screening for malignant neoplasm of colon | CPT/HCPCS: U0003 ==

== ENCOUNTER 2021-02-19 09:06 | Day surgery (SDC) | payer OTHER, SELFPAY ==
[2021-02-19] VITALS (7 sets, daily range): BP systolic 94–151; BP diastolic 54–96; PULSE 50–72; RESP 16–18; TEMP 36.2–36.4; O2SAT 95–100; BMI 30.7
--- NOTE | 2021-02-19 10:08 | P.PN_ITS ---
[facility] Anesthesia Checklist - Structural Data Admitted From: Home Planned Operative Procedure/s: colonoscopy Consent for Planned Operative Procedure(s) Verified: Yes - Airway Assessment C-Spine Mobility Assessed: Yes TMJ Mobility Assessed: Yes Dentition: Good Dentition - Neurological Assessment Level of Consciousness: Awake, Alert, Appropriate - Anesthesia Plan Anesthesia Risk discussed: Yes Anesthesia Plan: Verified ASA Class: II Anesthesia Type: MAC [facility] History I have reviewed the patient's past medical history: Yes Medical History: Denies:: Cancer, Diabetes Mellitus Type 1, Diabetes Mellitus Type 2, Internal Pacemaker, MRSA, Seizures *Have you ever received a pneumonia vaccine?: No *Have you received a flu vaccine this season?: No Anesthesia experience/problems:: none Other Surgeries: No: Pacemaker Amputation: No Fractures: Yes (left collar bone) - *Social History Smoking Status: Current every day smoker Tobacco Type: cigarettes # Packs/Day (cigarettes): 1 Alcohol Intake: never Substance Use Type: denies use *Occupational Status:: employed Housing: house *Travel in the last 8 weeks: None Family Hx:: No significant family history
--- NOTE | 2021-02-19 10:43 | HMH.PROC ---
[facility] Procedure Note Procedure Note:: Colonoscopy Procedure Report: Colonoscopy with cold snare polypectomy Endoscopist: Izaiah Swartz II, MD Referring physician: Eleonora MENA Date of Procedure: February 19, 2021 Equipment: Olympus 190 variable stiffness pediatric colonoscope Sedation: MAC sedation Indication: Mr. Sierra is a 31-year-old gentleman who is here for diagnostic colonoscopy. He does have chronic abdominal pain and nausea. He also has had a change in bowel habits. This started approximately 8 months ago. He states that he felt like he got a stomach bug and has not fully improved. He did have a CAT scan of the abdomen that showed some thickening of the distal descending/sigmoid colon. He has had multiple rounds of antibiotics (Cipro and Flagyl). He reports bloating, gassiness, belching and generalized discomfort. This is primarily in the left lower quadrant. He has noted blood on more than one occasion primarily on the toilet tissue. He states that his bowel movements go from loose to watery at times. He also has some occasional constipation. He reports no family history of colitis, Crohn's disease or colon cancer. Lab work including CBC and sedimentation rate were normal. His hemoglobin was 17.1 with hematocrit 52.0. His liver chemistries were also normal. Procedure: Prior to the procedure, a history and physical exam was performed, and patient's medications and allergies were reviewed. The risks, benefits and alternatives of the sedation and procedure were discussed with the patient. All questions were answered and informed consent was obtained. The patient was brought to the procedure room. Patient identification and proposed procedure were verified by the physician and the nurse. The patient was placed in a left lateral decubitus position and the scope was passed under direct vision. Throughout the procedure, the patient's blood pressure, pulse, and oxygen saturations were monitored continuously. The colonoscopy was accomplished without difficulty. The patient tolerated the procedure well. Findings: On digital rectal examination there was normal rectal tone. There were no external hemorrhoids. The prostate was 2+, smooth, mildly firm but symmetric without nodules. The colonoscope was introduced through the anal canal to the rectum and advanced to the cecum. The ileocecal valve and appendiceal orifice were identified. The scope was advanced a short distance into the ileum which appeared grossly normal. The scope was then withdrawn into the colon. The cecum, ascending and transverse colon and mucosa were grossly normal. There were 3 colon polyps (ascending x1 (3 mm), descending x1 (4 mm) and sigmoid x1 (5 mm)) which were all removed via cold snare polypectomy. The sigmoid polyp was adenomatous but removed and not retrieved. There were mildly scattered diverticuli throughout the descending and sigmoid colon (LEFT colon). The rectum itself was normal. Upon retroflexion within the rectum there were grade 1-2 internal hemorrhoids. The preparation was good throughout with [place] Preparation Score of 8 out of 9. The cecal time was 12 minutes. Impression: 1. Colonic polyps x3 2. Mild left-sided diverticulosis 3. Grade 1-2 internal hemorrhoids Plan: I will follow up the polyp histology and recommend repeat screening/surveillance colonoscopy again in 5 years if the polyps are adenomatous. The patient does have functional diarrhea and functional intestinal disorder with functional abdominal pain. I will discuss the findings with the patient and family. I would encourage dietary measures and a fiber bowel regimen on a long-term daily maintenance basis. I would also consider treatment for visceral sensitivity.
== END 2021-02-19 11:45 | disposition home or self-care (01) ==
PROVIDERS: PCP Internal Medicine Adolescent Medicine; Visit Provider Internal Medicine Gastroenterology
PROC: 0DJD8ZZ Inspection of Lower Intestinal Tract, Via Natural or Artificial Opening Endoscopic (ICD-10-PCS; CPT 45378; principal; 2021-02-19 10:00)
DX: K63.5 Polyp of colon (principal); K57.30 Diverticulosis of large intestine without perforation or abscess without bleeding; K64.0 First degree hemorrhoids; Z87.19 Personal history of other diseases of the digestive system; G43.909 Migraine, unspecified, not intractable, without status migrainosus; Z72.0 Tobacco use; Z79.899 Other long term (current) drug therapy
CPT/HCPCS: 45385

== ENCOUNTER 2021-03-27 11:29 | Emergency (ER) | payer OTHER, SELFPAY ==
[2021-03-27 13:14] VITALS: BP 146/103; PULSE 60; RESP 14; TEMP 36.6; O2SAT 99; BMI 29.5
--- NOTE | 2021-03-27 13:43 | HMH.EDUTC ---
[facility] [place] Disposition Clinical Impression: Rectal bleeding Abdominal pain Qualifiers: Abdominal location: generalized Qualified Code(s): R10.84 - Generalized abdominal pain Disposition: Still a Patient Condition on Discharge: Fair Referrals: Esdras Jj MD [Primary Care Provider] - Time of Disposition: 14:00 Medical Decision Making - Medical Records Medical records reviewed: No: I reviewed the patient's medical records. - Danny Inquiry Pt receiving controlled substance: No Vital Signs: 03/27/21 13:14 Temperature 98 F Temperature Source Oral Pulse Rate [Left] 60 Respiratory Rate 14 Blood Pressure [Right Arm] 146/103 H Blood Pressure Mean [Right Arm] 117 02 Sat by Pulse Oximetry 99 Orders (Tests/Meds): ORDERS Category Date Time Status Occult Blood,Stool Stat Lab 03/27/21 13:53 Ordered Medical Decision Narrative: He was transferred to the ER for further evaluation due to the obvious blood noted upon rectal exam, his abdominal pain and his history of diverticulitis. [facility] [place] HPI - General Stated complaint: stomach pains, bloody stool Time Seen by Provider: 03/27/21 13:43 Mode of Arrival: Ambulatory Source of Information: Patient Limitations: No Limitations Description of Symptoms (Recalled from Triage Doc. by RN): pt c/o stomach cramps/pain in all quads. pt also states he has had copious amounts of bright red blood in his stool for 3-4 days. 01/19 he had a colonoscopy and has internal hemmrhoids and diverticulosis. HEENT Symptoms (Recalled from RN notes): No Resp Symptoms (Recalled from RN notes): No Skin Symptoms (Recalled from RN notes): No MS Symptoms (Recalled from RN notes): No Functional Status (Recalled from RN notes): na - History of Present Illness Provider Complaint: He is here with complaints of maroon red rectal bleeding that started 3 days ago. His bleeding has progressivly got worse since it began. He has a history of diverticulosis and internal hemorrhoids, but he has never had rectal bleeding with those conditions. - Related Data Home Medications Medication Instructions Recorded Confirmed Dicyclomine HCl 20 mg PO DAILY 02/19/21 02/19/21 Propranolol HCl [Inderal 20mg 20 mg PO DAILY 02/19/21 02/19/21 tablet] Previous Rx's Medication Instructions Recorded Ondansetron [Zofran 4mg ODT] 4 mg PO Q8HP PRN #20 tab.rapdis 02/13/21 Allergies Allergy/AdvReac Type Severity Reaction Status Date / Time No Known Allergies Allergy Verified 01/19/21 10:50 - Worker's Comp Is this a Worker's Comp case?: No [facility] History - Hepatitis A Screen Drug use history?: No High risk sexual behaviors?: No History of sexually transmitted infection?: No Currently employed?: No Childcare worker?: No Do you have indoor plumbing?: Yes Do you have electricity?: Yes Attestation statement:: This patient has been screened for Hepatitis A risk factors. I have reviewed the patient's past medical history: Yes Medical History: Denies:: Cancer, Diabetes Mellitus Type 1, Diabetes Mellitus Type 2, Internal Pacemaker, MRSA, Seizures Other Surgeries: No: Pacemaker Amputation: No Fractures: Yes (left collar bone) - Social History Smoking Status: Current every day smoker Tobacco Type: cigarettes # Packs/Day (cigarettes): 1 Alcohol Intake: never Substance Use Type: denies use Occupational Status: employed Housing: house Family Hx:: No significant family history ROS Obtained: Yes All systems reviewed & no additional complaints - Constitutional Constitutional: Denies chills, Denies fever(s) - Eyes Eyes: Denies eye discharge - ENT Ears, Nose, Mouth, and Throat: Denies sore throat - Cardiovascular Cardiovascular: Denies chest pain - Respiratory Respiratory: Denies chest congestion, Denies cough - Gastrointestinal Gastrointestingal: Reports: as per HPI - Genitourinary Male Genitourinary: Denies difficulty urinating - Musculoskeletal Musculoskeletal: Denies
[2021-03-27 14:04] VITALS: BP 168/106; PULSE 54; RESP 18; TEMP 36.9; O2SAT 97; BMI 29.5
--- NOTE | 2021-03-27 14:09 | HMH.EDGENADL ---
ED Disposition Clinical Impression: Rectal bleeding Abdominal pain Qualifiers: Abdominal location: generalized Qualified Code(s): R10.84 - Generalized abdominal pain Disposition: Still a Patient Condition on Discharge: Fair Instructions: Acute Abdominal Pain, DI for Diverticulosis Additional Instructions: Please follow-up with your primary care physician as needed. Return to the emergency department if you have fever or constant/persistent abdominal pain. Referrals: Esdras Jj MD [Primary Care Provider] - - Critical Care Critical Care Time: No Attestation: On 03/27/21, the high probability of a clinically significant, sudden or life threatening deterioration of the following system(s) required my full and direct attention, intervention and personal management. The time I documented below is in addition to time spent performing reported procedures but includes the following listed in this critical care notation. Medical Decision Making - Medical Records Medical records reviewed: Yes: I reviewed the patient's medical records. - Danny Inquiry Pt receiving controlled substance: No Vital Signs: 03/27/21 13:14 03/27/21 14:04 Temperature 98 F 98.4 F Temperature Source Oral Oral Pulse Rate [Left] 60 54 L Respiratory Rate 14 18 Blood Pressure [Right Arm] 146/103 H 168/106 H Blood Pressure Mean [Right Arm] 117 126 02 Sat by Pulse Oximetry 99 97 Oxygen Delivery Method Room Air - Lab Data Lab results reviewed: Yes: I reviewed the patient's lab results. Lab Results 03/27/21 13:55: Stool Occult Blood Positive A 03/27/21 14:45: WBC 13.8 H, RBC 5.17, Hgb 16.8, Hct 50.9, MCV 98.4 H, MCH 32.5 H, MCHC 33.0, RDW 13.6, Plt Count 210, MPV 8.5, Neut % (Auto) 69.8, Lymph % (Auto) 24.4, [place] % (Auto) 4.7, Eos % (Auto) 0.6, Baso % (Auto) 0.6, Neut # (Auto) 9.6 H, Lymph # (Auto) 3.4, [place] # (Auto) 0.6, Eos # (Auto) 0.1, Baso # (Auto) 0.1 03/27/21 14:45: Sodium 141, Potassium 4.2, Chloride 107, Carbon Dioxide 28, Anion Gap 10.2, BUN 7 L, Creatinine 0.70, Estimated Creat Clear 204, Estimated GFR 130, Est GFR ( Amer) 157, Glucose 108 H, Calcium 9.4, Total Bilirubin 0.3, AST 28, ALT 24, Alkaline Phosphatase 66, Total Protein 7.4, Albumin 4.4, Globulin 3.0, Albumin/Globulin Ratio 1.5 Result diagrams: 03/27/21 14:45 03/27/21 14:45 Medical Decision Narrative: The patient's work-up in the emergency department did not reveal any life-threatening or dangerous conditions. The patient recently had a colonoscopy which showed diverticulosis. The patient's abdomen is nontender. His vital signs are stable. He is afebrile. He does have blood in the stool which is firmed by Hemoccult testing. The patient is not anemic. There is no need for transfusion. The patient can be discharged in stable condition within instructions to follow-up with his primary care and/or gas inspector as needed. General Adult HPI - General Stated complaint: stomach pains, bloody stool Time Seen by Provider: 03/27/21 13:43 Mode of Arrival: Ambulatory Source of Information: Patient Limitations: No Limitations Description of Symptoms (Recalled from ER Triage Doc. by RN): pt c/o stomach cramps/pain in all quads. pt also states he has had copious amounts of bright red blood in his stool for 3-4 days. 01/19 he had a colonoscopy and has internal hemmrhoids and diverticulosis. - History of Present Illness HPI narrative: The patient presents to the emergency department complaining of bloody stools for the last 4 days with intermittent abdominal cramping. He recently had a colonoscopy which revealed that the patient has diverticulosis. The patient denies any fevers and denies any persistent abdominal pain. Denies feeling lightheaded or having near syncopal episodes. - Related Data Home Medications Medication Instructions Recorded Confirmed Dicyclomine HCl 20 mg PO DAILY 02/19/21 02/19/21 Propranolol HCl [Inderal 20mg 20 mg PO DAILY
[2021-03-27 15:02] LABS: Basophils # 0.1 K/mm3 (0-0.2); Basophils % 0.6 % (0.1-2.0); Eosinophils # 0.1 K/mm3 (0.0-0.4); Eosinophils % 0.6 % (0.1-12.0); Hematocrit 50.9 % (42.0-52.0); Hemoglobin 16.8 g/dL (14.1-18.0); Lymphocytes # 3.4 K/mm3 (0.7-4.5); Lymphocytes % 24.4 % (10-50); Mean Corpuscular Hemoglobin 32.5 pg (27.0-31.2); Mean Corpuscular Volume 98.4 fl (80-94); Mean Platelet Volume 8.5 fl (7.4-10.4); Monocytes # 0.6 K/mm3 (0.1-1.0); Monocytes % 4.7 % (1.7-9.3); Neutrophils # 9.6 K/mm3 (1.8-7.8); Neutrophils % 69.8 % (37.0-80.0); Platelet Count 210 K/mm3 (142-424); Red Blood Count 5.17 M/mm3 (4.60-6.20); Red Cell Distribution Width 13.6 % (11.5-17.5); White Blood Count 13.8 K/mm3 (4.8-10.8)
[2021-03-27 15:06] LABS: Chloride 107 mmol/L (98-107); Potassium 4.2 mmoL/L (3.5-5.1); Sodium 141 mmol/L (136-145)
[2021-03-27 15:08] LABS: Blood Urea Nitrogen 7 mg/dl (9-20); Creatinine Clearance Estimated 204 mL/min (50-200); Estimated Glomerular Filt Rate 130 ml/min (>60); GFR (African American) 157 ML/MIN (>60)
[2021-03-27 15:09] LABS: Alanine Aminotransferase 24 U/L (12-78); Albumin Level 4.4 g/dl (3.5-5.0); Albumin/Globulin Ratio 1.5 (1.1-1.8); Alkaline Phosphatase 66 U/L (38-126); Anion Gap 10.2 mEq/L (5-15); Aspartate Amino Transferase 28 U/L (17-59); Bilirubin,Total 0.3 mg/dl (0.2-1.3); Calcium 9.4 mg/dl (8.4-10.2); Carbon Dioxide 28 mmol/L (22.0-30.0); Glucose 108 mg/dl (74-100); Total Protein,Serum 7.4 g/dl (6.3-8.2)
[2021-03-27 15:11] LABS: Occult Blood,Stool Positive (Negative)
[2021-03-27 16:15] VITALS: BP 128/73; PULSE 71; RESP 14; TEMP 36.8; O2SAT 97
== END 2021-03-27 16:16 | disposition home or self-care (01) ==
LOC: UTC 11:31 → ER 13:58
PROVIDERS: Nurse Practitioner Family; Emergency Provider Emergency Medicine; PCP Internal Medicine Adolescent Medicine
DX: K62.5 Hemorrhage of anus and rectum (principal); R10.84 Generalized abdominal pain; F17.210 Nicotine dependence, cigarettes, uncomplicated
CPT/HCPCS: 80053; 82272; 85025; 99282; G0328

== ENCOUNTER 2021-03-28 08:19 | Emergency (ER) | payer OTHER, SELFPAY ==
[2021-03-28 08:19] VITALS: BP 156/103; PULSE 67; RESP 16; TEMP 37.1; O2SAT 98; BMI 29.5
--- NOTE | 2021-03-28 08:25 | HMH.EDABDPAI ---
ED Disposition Clinical Impression: Diverticulosis Abdominal pain Qualifiers: Abdominal location: left lower quadrant Qualified Code(s): R10.32 - Left lower quadrant pain Disposition: Home, Self-Care Condition on Discharge: Fair Instructions: DI for Acute Abdominal Pain Additional Instructions: Stick to a clear liquid diet for the next day or 2. Take all medications as prescribed. Follow-up with your primary care doctor or yard engineer within the next few days if you do not improve. Turn to the emergency department if you feel worse. Prescriptions: Metoclopramide HCl [Reglan 10mg Tab] 10 mg PO QID PRN #20 tab PRN Reason: Nausea Transmission Status: Pending to [employer] #[id number] Referrals: Esdras Jj MD [Primary Care Provider] - - Critical Care Critical Care Time: No Attestation: On 03/28/21, the high probability of a clinically significant, sudden or life threatening deterioration of the following system(s) required my full and direct attention, intervention and personal management. The time I documented below is in addition to time spent performing reported procedures but includes the following listed in this critical care notation. Medical Decision Making - Medical Records Medical records reviewed: Yes: I reviewed the patient's medical records. - Danny Inquiry Pt receiving controlled substance: No Vital Signs: 03/28/21 08:19 Temperature 98.7 F Temperature Source Oral Pulse Rate [Right Radial] 67 Respiratory Rate 16 Blood Pressure [Right Arm] 156/103 H Blood Pressure Mean [Right Arm] 120 Blood Pressure Source [Right Arm] Automatic Cuff Blood Pressure Position [Right Arm] Sitting 02 Sat by Pulse Oximetry 98 Oxygen Delivery Method Room Air - Lab Data Lab results reviewed: Yes: I reviewed the patient's lab results. Lab Results 03/28/21 08:28: WBC 12.0 H, RBC 5.70, Hgb 18.2 H, Hct 55.3 H, MCV 97.1 H, MCH 32.0 H, MCHC 33.0, RDW 13.5, Plt Count 237, MPV 8.9, Neut % (Auto) 72.5, Lymph % (Auto) 21.7, [place] % (Auto) 4.1, Eos % (Auto) 0.9, Baso % (Auto) 0.7, Neut # (Auto) 8.7 H, Lymph # (Auto) 2.6, [place] # (Auto) 0.5, Eos # (Auto) 0.1, Baso # (Auto) 0.1 Result diagrams: 03/28/21 08:28 Orders (Tests/Meds): ED MEDICATIONS Discontinued Medications Generic Name Dose Route Start Last Admin Trade Name Elzbieta PRN Reason Stop Dose Admin Iopamidol 75 ml 03/28/21 08:48 03/28/21 08:49 Iopamidol-370 (76%);100ml Bottle IV 03/28/21 08:49 75 ml ONCE ONE Administration Metoclopramide HCl 10 mg 03/28/21 09:25 03/28/21 09:30 Metoclopramide Hcl 10mg/2ml Vial IVP 03/28/21 09:26 10 mg ONCE ONE Administration Ondansetron HCl 4 mg 03/28/21 08:31 03/28/21 09:18 Ondansetron 4mg/2ml Vial IV 03/28/21 08:32 4 mg ONCE ONE Administration Sodium Chloride 10 ml 03/28/21 08:48 03/28/21 08:49 Sodium Chloride 0.9% 10ml Syr (Rad Only) IV 03/28/21 08:49 10 ml ONCE ONE Administration - CT Data CT Scan: Abdomen, Pelvis Time Received: 09:[address] Reviewed: Yes: I have viewed the radiologist's interpretation Preliminary Findings: Normal/NAD Medical Decision Narrative: Today's work-up included a CT of the abdomen and a repeat CBC. The patient continues not to have anemia. His white blood cell count is 12 which is a nonspecific finding. The CT of the abdomen did not show any inflammatory changes suggestive of diverticulitis or other inflammatory process within the abdomen. The patient feels a little bit better after Zofran. He will be given Reglan. I feel that he can be safely discharged home with follow-up with his primary care physician or yard engineer. He will be given a prescription for Reglan. Abdominal Pain HPI - General Chief Complaint: Abdominal Pain Stated Complaint: abdominal pains Time Seen by Provider: 03/28/21 08:25 Mode of Arrival: Ambulatory Source of Information: Patient - History of Present Illness HPI narrative
--- NOTE | 2021-03-28 08:26 | CT_ITS ---
PROCEDURE: CT ABDOMEN PELVIS W CON CLINICAL INDICATION: Abdominal pain, GI bleeding, hx of diverticulosis COMPARISON: No exams were available for comparison TECHNIQUE: IV Contrast: 75ML Isovue 370 Oral Contrast None Axial images obtained with sagittal and coronal reformats. All CT scans at the facility use one or more dose reduction, viz: automated exposure control, ma/kV adjustment per patient size (including targeted exams where dose is matched to indication, i.e. head), or iterative reconstruction technique. FINDINGS: LOWER THORAX: No acute finding ABDOMEN & PELVIS: The liver, spleen, pancreas and adrenal glands have an unremarkable appearance. There is a nonobstructing stone in the mid polar region of the left kidney at 3 mm. No intestinal obstruction or free air. No evidence of appendicitis or diverticulitis. Small bowel feces sign suggesting prolonged transit. No evidence of small-bowel obstruction. Tiny umbilical hernia containing fat. No pelvic mass abnormal fluid collections or focal inflammatory change evident. Pelvic phleboliths are present. No acute bony findings. There are few small nodes in the inguinal regions on both sides. IMPRESSION: 1. No acute finding. 2. Nonobstructing left nephrolithiasis. 3. Small bowel feces sign suggesting prolonged transit without evidence of obstruction. Dictated by: Chris Lopez MD 03/28/2021 09:08 Chris Lopez MD in [place] 03/28/2021 09:08
--- NOTE | 2021-03-28 08:41 | PC.NURSE ---
Pt to CT
[2021-03-28 08:43] LABS: Basophils # 0.1 K/mm3 (0-0.2); Basophils % 0.7 % (0.1-2.0); Eosinophils # 0.1 K/mm3 (0.0-0.4); Eosinophils % 0.9 % (0.1-12.0); Hematocrit 55.3 % (42.0-52.0); Lymphocytes # 2.6 K/mm3 (0.7-4.5); Lymphocytes % 21.7 % (10-50); Mean Corpuscular Volume 97.1 fl (80-94); Mean Platelet Volume 8.9 fl (7.4-10.4); Monocytes # 0.5 K/mm3 (0.1-1.0); Monocytes % 4.1 % (1.7-9.3); Neutrophils # 8.7 K/mm3 (1.8-7.8); Neutrophils % 72.5 % (37.0-80.0); Platelet Count 237 K/mm3 (142-424); Red Cell Distribution Width 13.5 % (11.5-17.5)
[2021-03-28 08:56] LABS: Hemoglobin 18.2 g/dL (14.1-18.0)
[2021-03-28 09:33] VITALS: BP 140/87; PULSE 59; O2SAT 100
[2021-03-28 09:49] VITALS: BP 140/87; PULSE 59; RESP 16; TEMP 37.1; O2SAT 98
== END 2021-03-28 09:50 | disposition home or self-care (01) ==
PROVIDERS: Emergency Provider Emergency Medicine; PCP Internal Medicine Adolescent Medicine
DX: R10.32 Left lower quadrant pain (principal); K57.90 Diverticulosis of intestine, part unspecified, without perforation or abscess without bleeding
CPT/HCPCS: 74177; 85025; 96374; 96375; 99283; J2405; Q9967

== ENCOUNTER 2021-03-30 09:15 | Emergency (ER) | payer OTHER, SELFPAY ==
[2021-03-30 10:06] VITALS: BP 148/102; PULSE 73; RESP 20; TEMP 36.6; O2SAT 98; BMI 35.9
--- NOTE | 2021-03-30 10:24 | HMH.EDUTC ---
[facility] [place] Disposition Clinical Impression: Anxiety Disposition: Home, Self-Care Condition on Discharge: Good Instructions: DI for Depression -- Adult, DI for Anxiety -- Child, Hydroxyzine Additional Instructions: GO STRAIGHT TO THE ER FOR ANY SUICIDAL OR HOMICIDAL IDEAS. Take the vistaril (hydroxyzine) as prescribed for anxiety. It will make you drowsy, so don't take if you are going to have to drive or operate heavy machinery. Follow up with your primary care physician. Keep trying to get hold of them on the phone also. Continue to hold you zoloft until you are given instructions by your primary care physician. Usually, you need to slowly wean off this medication, but it doesn't sound like you were on it long enough to have to worry about that. GO TO THE ER FOR ANY WORSENING SYMPTOMS OR CONCERNS, ESPECIALLY AND SUICIDAL OR HOMICIDAL IDEATIONS. Prescriptions: hydrOXYzine pamoate [Vistaril 25mg capsule] 25 mg PO Q6HP PRN #30 cap PRN Reason: Anxiety Transmission Status: Received by [facility] #[id number] Referrals: Esdras Jj MD [Primary Care Provider] - Forms: Work/School Release Time of Disposition: 11:00 Medical Decision Making - Medical Records Medical records reviewed: No: I reviewed the patient's medical records. - Danny Inquiry Pt receiving controlled substance: No Vital Signs: 03/30/21 10:06 03/30/21 11:03 Temperature 98 F 98 F Temperature Source Oral Pulse Rate 73 Pulse Rate [Left] 73 Respiratory Rate 20 18 Blood Pressure 148/102 H Blood Pressure [Right Arm] 148/102 H Blood Pressure Mean [Right Arm] 117 Blood Pressure Source [Right Arm] Automatic Cuff 02 Sat by Pulse Oximetry 98 [facility] [place] HPI - General Stated complaint: Abdominal issues Time Seen by Provider: 03/30/21 10:24 Mode of Arrival: Ambulatory Source of Information: Patient Limitations: No Limitations Description of Symptoms (Recalled from Triage Doc. by RN): pt c/o anxiety. he states his heart has been pounding out of his chest, cant sleep, stomach ache, and that he can't get calmed down. pt states this has been going on for a week. he stopped his zoloft yesterday per his dr. SHAH Symptoms (Recalled from RN notes): No Resp Symptoms (Recalled from RN notes): No Skin Symptoms (Recalled from RN notes): No MS Symptoms (Recalled from RN notes): No Functional Status (Recalled from RN notes): see above - History of Present Illness Provider Complaint: He states that he has been having issues with anxiety over the past several months. He has some health issues that have played into this also. A little over a week ago, he was started on zoloft for his depression/anxiety symptoms by his primary care physician. He denies that the zoloft helped any. He actually thinks the zoloft made him feel worse. He denies any SI or HI. He has tried to call his pcp today, but he had to leave a message. So, he came here to be seen. He denies rectal bleeding at this time. He denies significant abdominal pain also. - Related Data Home Medications Medication Instructions Recorded Confirmed Dicyclomine HCl 20 mg PO DAILY 02/19/21 02/19/21 Propranolol HCl [Inderal 20mg 20 mg PO DAILY 02/19/21 02/19/21 tablet] Previous Rx's Medication Instructions Recorded Ondansetron [Zofran 4mg ODT] 4 mg PO Q8HP PRN #20 tab.rapdis 02/13/21 Metoclopramide HCl [Reglan 10mg 10 mg PO QID PRN #20 tab 03/28/21 Tab] hydrOXYzine pamoate [Vistaril 25mg 25 mg PO Q6HP PRN #30 cap 03/30/21 capsule] Allergies Allergy/AdvReac Type Severity Reaction Status Date / Time No Known Allergies Allergy Verified 01/19/21 10:50 - Worker's Comp Is this a Worker's Comp case?: No [facility] History - Hepatitis A Screen Drug use history?: No High risk sexual behaviors?: No History of sexually transmitted infection?: No Currently employed?: No Childcare worker?: No Do you have indoor plumbing?: Yes Do you have electricity?: Yes Att
[2021-03-30 11:03] VITALS: BP 148/102; PULSE 73; RESP 18; TEMP 36.6
== END 2021-03-30 11:06 | disposition home or self-care (01) ==
PROVIDERS: Emergency Provider Nurse Practitioner Family; PCP Internal Medicine Adolescent Medicine
DX: F41.9 Anxiety disorder, unspecified (principal); F17.210 Nicotine dependence, cigarettes, uncomplicated
CPT/HCPCS: 99202; G0463

== ENCOUNTER → 2021-06-04 08:27 | Outpatient (CLI) | payer OTHER, SELFPAY | PROVIDERS: PCP Internal Medicine Adolescent Medicine; Visit Provider Nurse Practitioner | DX: Z20.822 Contact with and (suspected) exposure to COVID-19 (principal) | CPT/HCPCS: C9803; U0003; U0005 ==

== ENCOUNTER 2021-08-13 17:49 | Emergency (ER) | payer OTHER, SELFPAY ==
[2021-08-13 17:58] VITALS: BP 0/0; PULSE 0; RESP 0; TEMP -17.7; TEMP 0
== END 2021-08-13 17:58 | disposition left against medical advice (07) ==
LOC: UTC 17:52
PROVIDERS: Emergency Provider Nurse Practitioner Family; PCP Internal Medicine Adolescent Medicine
DX: Z53.21 Procedure and treatment not carried out due to patient leaving prior to being seen by health care provider (principal)

== ENCOUNTER → 2021-08-14 15:29 | Outpatient (CLI) | payer OTHER, SELFPAY | PROVIDERS: PCP Internal Medicine Adolescent Medicine; Visit Provider Nurse Practitioner | DX: U07.1 COVID-19 (principal) | CPT/HCPCS: C9803; U0003; U0005 ==

== ENCOUNTER 2022-02-22 13:40 | Emergency (ER) | payer BC, OTHER, SELFPAY ==
[2022-02-22 14:35] VITALS: BP 137/79; PULSE 76; RESP 19; TEMP 36.8; O2SAT 98; BMI 28.4
[2022-02-22 15:07] VITALS: BP 137/79; PULSE 76; RESP 19; TEMP 36.8; O2SAT 98
--- NOTE | 2022-02-22 15:11 | HMH.EDUTC ---
[facility] [place] Impression: Exposure to COVID-19 virus Disposition: Home, Self-Care Condition on Discharge: Good Instructions: DI for COVID-19 (Suspected or Confirmed ), Preventing the Spread of Coronavirus Discharge Instructions Additional Instructions: *Monitor Temp, Over the counter Motrin or Tylenol as directed/as needed Tylenol every 4 hours and Motrin every 6 hours (as long as your family doctor has told you that you can take it) for fever or pain. and straight to ER if unable to lower temp less than 101.0 after medication given *Warm salt water gargles may help to soothe the throat *Throat Lozenges *Warm fluids like tea with honey may help to soothe the throat *Sleep elevated *Humidifier/Vaporizer Follow up IMMEDIATELY for new or worsening symptoms or no Noticeable improvement over the next 48-72 hours. 911 for difficulty breathing or swallowing You were tested for today for COVID19 your test result should be back in the next 24-48 hours, you may check your results on the [facility] My Health Portal Make sure to take your Vitamins Vit. C Vit D and Zinc if you can take them Prescriptions: Ondansetron [Zofran 4mg ODT] 4 mg PO TIDP PRN #10 tab PRN Reason: Nausea Transmission Status: Pending to [facility][id number] Referrals: Esdras Jj MD [Primary Care Provider] - As needed Forms: Work/School Release Medical Decision Making - Danny Inquiry Pt receiving controlled substance: No Danny was queried for this patient: No Vital Signs: 02/22/22 14:35 02/22/22 15:07 Temperature 98.3 F 98.3 F Temperature Source Oral Pulse Rate 76 Pulse Rate [Right Brachial] 76 Respiratory Rate 19 19 Blood Pressure 137/79 Blood Pressure [Right Arm] 137/79 Blood Pressure Mean [Right Arm] 98 Blood Pressure Source [Right Arm] Automatic Cuff Blood Pressure Position [Right Arm] Sitting 02 Sat by Pulse Oximetry 98 Oxygen Delivery Method Room Air Orders (Tests/Meds): ORDERS Category Date Time Status Covid-19 Nasal PCR ([facility]) Routine Lab 02/22/22 14:36 [place] [facility] [place] - General Stated complaint: Exposure to Covid Time Seen by Provider: 02/22/22 15:11 Mode of Arrival: Ambulatory Source of Information: Patient Limitations: No Limitations Description of Symptoms (Recalled from Triage Doc. by RN): COVID TEST D/T EXPOSURE. C/O HEADACHE HEENT Symptoms (Recalled from RN notes): Yes Resp Symptoms (Recalled from RN notes): No Skin Symptoms (Recalled from RN notes): No MS Symptoms (Recalled from RN notes): No Functional Status (Recalled from RN notes): WNL - History of Present Illness Provider Complaint: Patient state that his daughter recently tested positive for COVID states that he woke up this morning with achy headache and nausea not feeling well and worried he may have it now too - Related Data Home Medications Medication Instructions Recorded Confirmed Dicyclomine HCl 20 mg PO DAILY 02/19/21 02/19/21 Propranolol HCl [Inderal 20mg 20 mg PO DAILY 02/19/21 02/19/21 tablet] Previous Rx's Medication Instructions Recorded Ondansetron [Zofran 4mg ODT] 4 mg PO Q8HP PRN #20 tab.rapdis 02/13/21 Metoclopramide HCl [Reglan 10mg 10 mg PO QID PRN #20 tab 03/28/21 Tab] hydrOXYzine pamoate [Vistaril 25mg 25 mg PO Q6HP PRN #30 cap 03/30/21 capsule] Ondansetron [Zofran 4mg ODT] 4 mg PO TIDP PRN #10 tab 02/22/22 Allergies Allergy/AdvReac Type Severity Reaction Status Date / Time No Known Allergies Allergy Verified 01/19/21 10:50 - Worker's Comp Is this a Worker's Comp case?: No [facility] History - Hepatitis A Screen Attestation statement:: This patient has been screened for Hepatitis A risk factors. I have reviewed the patient's past medical history: Yes Medical History: Denies:: Cancer, Diabetes Mellitus Type 1, Diabetes Mellitus Type 2, Internal Pacemaker, MRSA, Seizures Other Surgeries: No: Pacemaker Amputation: No Fractures: Yes (left col
== END 2022-02-22 15:20 | disposition home or self-care (01) ==
PROVIDERS: Emergency Provider Nurse Practitioner; PCP Internal Medicine Adolescent Medicine
DX: Z20.822 Contact with and (suspected) exposure to COVID-19 (principal); R51.9 Headache, unspecified
CPT/HCPCS: 99212; C9803; G0463; U0003; U0005

== ENCOUNTER 2022-02-24 16:14 | Emergency (ER) | payer BC, OTHER, SELFPAY ==
[2022-02-24 16:20] VITALS: BP 119/72; PULSE 64; RESP 18; TEMP 36.8; O2SAT 98; BMI 28.7
--- NOTE | 2022-02-24 16:57 | HMH.EDUTC ---
[facility] [place] Clinical Impression: Exposure to COVID-19 virus, Viral syndrome Disposition: Home, Self-Care Condition on Discharge: Good Instructions: DI for Viral Upper Respiratory Infection -- Adult, DI for COVID-19 (Suspected or Confirmed ), Preventing the Spread of Coronavirus Discharge Instructions Additional Instructions: *Monitor Temp, Over the counter Motrin or Tylenol as directed/as needed Tylenol every 4 hours and Motrin every 6 hours (as long as your family doctor has told you that you can take it) for fever or pain. and straight to ER if unable to lower temp less than 101.0 after medication given *Warm salt water gargles may help to soothe the throat *Throat Lozenges *Warm fluids like tea with honey may help to soothe the throat *Sleep elevated *Humidifier/Vaporizer Follow up IMMEDIATELY for new or worsening symptoms or no Noticeable improvement over the next 48-72 hours. 911 for difficulty breathing or swallowing You were tested for today for COVID19 your test result should be back in the next 24-48 hours, you may Check your results on the [facility] My Health portal Make sure to take your Vitamins Vit. C Vit D and Zinc if you can take them Referrals: Esdras Jj MD [Primary Care Provider] - As needed Forms: Work/School Release Time of Disposition: 17:04 Medical Decision Making - Danny Inquiry Pt receiving controlled substance: No Danny was queried for this patient: No Vital Signs: 02/24/22 16:20 Temperature 98.2 F Temperature Source Oral Pulse Rate [Right Brachial] 64 Respiratory Rate 18 Blood Pressure [Right Arm] 119/72 Blood Pressure Mean [Right Arm] 87 Blood Pressure Source [Right Arm] Automatic Cuff Blood Pressure Position [Right Arm] Sitting 02 Sat by Pulse Oximetry 98 Oxygen Delivery Method Room Air Orders (Tests/Meds): ORDERS Category Date Time Status Covid-19 Nasal PCR ([facility]) Routine Lab 02/24/22 16:32 Received [facility] [place] H[place] - General Stated complaint: exposed,congestion,[place] Time Seen by Provider: 02/24/22 16:58 Mode of Arrival: Ambulatory Source of Information: Patient Limitations: No Limitations Description of Symptoms (Recalled from Triage Doc. by RN): PATIENT C/O CONGESTION AND HEADACHE SINCE THIS MORNING. REPORTS HIS CHILDREN ARE POSITIVE FOR COVID HEENT Symptoms (Recalled from RN notes): Yes Resp Symptoms (Recalled from RN notes): No Skin Symptoms (Recalled from RN notes): No MS Symptoms (Recalled from RN notes): No Functional Status (Recalled from RN notes): WNL - History of Present Illness Provider Complaint: Patient states that his children have recently tested positive for COVID States that today he started having headache, nasal congestion and body aches States that he came in this evening when he was still not feeling well to get tested - Related Data Allergies Allergy/AdvReac Type Severity Reaction Status Date / Time No Known Allergies Allergy Verified 01/19/21 10:50 - Worker's Comp Is this a Worker's Comp case?: No [facility] History - Hepatitis A Screen Attestation statement:: This patient has been screened for Hepatitis A risk factors. I have reviewed the patient's past medical history: Yes Medical History: Denies:: Cancer, Diabetes Mellitus Type 1, Diabetes Mellitus Type 2, Internal Pacemaker, MRSA, Seizures Other Surgeries: No: Pacemaker Amputation: No Fractures: Yes (left collar bone) - Social History Smoking Status: Current every day smoker Tobacco Type: cigarettes # Packs/Day (cigarettes): 1 Alcohol Intake: never Substance Use Type: denies use Occupational Status: other Housing: house Family Hx:: No significant family history ROS Obtained: Yes All systems reviewed & no additional complaints, Yes Systems reviewed as appropriate & no additional complaints - Constitutional Constitutional: Reports system reviewed and no additional complaints, except as docu, Reports body ache, Reports fatigue, Reports headache(s) - ENT Ears, No
[2022-02-24 17:07] VITALS: BP 119/72; PULSE 64; RESP 18; TEMP 36.8; O2SAT 98
== END 2022-02-24 17:12 | disposition home or self-care (01) ==
PROVIDERS: Emergency Provider Nurse Practitioner; PCP Internal Medicine Adolescent Medicine
DX: U07.1 COVID-19 (principal); F17.210 Nicotine dependence, cigarettes, uncomplicated
CPT/HCPCS: 99212; C9803; G0463; U0003; U0005

== ENCOUNTER 2022-04-21 14:25 | Emergency (ER) | payer BC, OTHER, SELFPAY ==
[2022-04-21 14:35] VITALS: BP 141/86; PULSE 62; RESP 18; TEMP 36.8; O2SAT 98; BMI 28.0
--- NOTE | 2022-04-21 14:38 | EXP.UTC ---
Discharge Plan Disposition Patient Disposition: Home, Self-Care Condition: Good Referrals Follow up/Referrals: Esdras Jj MD [Primary Care Provider] - See instructions Activity Restrictions/Add. Instructions Additional Instructions/Restrictions: *Monitor Temp, Over the counter Motrin or Tylenol as directed/as needed Tylenol every 4 hours and Motrin every 6 hours (as long as your family doctor has told you that you can take it) for fever or pain. and straight to ER if unable to lower temp less than 101.0 after medication given Follow up IMMEDIATELY for new or worsening symptoms or no Noticeable improvement over the next 48-72 hours. 911 for difficulty breathing or swallowing You were tested for today for COVID19 your test result should be back in the next 24-48 hours, you may check your results on the [facility] Health Portal Make sure to take your Vitamins Vit. C Vit D and Zinc if you can take them Clinical Impressions Clinical Impression: Exposure to COVID-19 virus Stand Alone Forms Stand Alone Forms: Work/School Release Instructions Patient Instructions: Coronavirus Disease 2019, Preventing the Spread of Coronavirus Discharge Instructions Discharge ED Provider: Emily Silva [facility] [place] General Stated complaint: naa JOHNSTON covid test Time Seen by Provider: 04/21/22 14:38 History of Present Illness Provider Complaint: Patient states that he was around family last week that was positive for COVID and he has to have a COVID test before he can return to work State that he has had a little headache but not had any fever or anything Related Data Allergies Allergy/AdvReac Type Severity Reaction Status Date / Time No Known Allergies Allergy Verified 01/19/21 10:50 [facility] Social History Smoking Status: Current every day smoker tobacco type: cigarettes packs per day: 1 second hand exposure: No alcohol intake: never substance use type: denies use current occupational status: other Travel in the last 8 weeks: None housing: house current occupational exposures/hazards: No caffeine: No ROS Obtained: Yes All systems reviewed & no additional complaints except as documented and Yes Systems reviewed as appropriate & no additional complaints except as documented Constitutional Constitutional: Reports system reviewed and no additional complaints, except as documented, Reports as per HPI and Reports headache(s) ENT Ears, Nose, Mouth, and Throat: Reports system reviewed and no additional complaints, except as documented, Reports as per HPI and Reports headache(s) Cardiovascular Cardiovascular: Reports system reviewed and no additional complaints, except as documented and Reports as per HPI Respiratory Respiratory: Reports system reviewed and no additional complaints, except as documented, Reports as per HPI, Denies shortness of breath and Denies cough Neurologic Neurologic: Reports headache(s) Physical Exam General General appearance: alert and in no apparent distress Eye Eye exam: Present normal appearance, PERRL and EOMI ENT ENT exam: Present mucous membranes moist Respiratory Respiratory exam: Present normal lung sounds bilaterally; Absent respiratory distress or wheezes Cardiovascular Cardiovascular exam: Present regular rate, normal rhythm and normal heart sounds Neurological Exam Neurological exam: Present alert, oriented X3 and normal gait Medical Decision Making Danny Inquiry Pt receiving controlled substance: No Danny was queried for this patient: No Orders (Tests/Meds): ORDERS Category Date Time Status Covid-19 Nasal PCR ([facility]) Routine Lab 04/21/22 14:31 Ordered
[2022-04-21 14:49] VITALS: BP 141/86; PULSE 62; RESP 18; TEMP 36.8; O2SAT 98
== END 2022-04-21 14:51 | disposition home or self-care (01) ==
PROVIDERS: Emergency Provider Nurse Practitioner; PCP Internal Medicine Adolescent Medicine
DX: Z20.822 Contact with and (suspected) exposure to COVID-19 (principal); R51.9 Headache, unspecified
CPT/HCPCS: 99212; C9803; G0463; U0003; U0005

== ENCOUNTER 2022-08-19 09:12 | Emergency (ER) | payer BC, OTHER, SELFPAY ==
[2022-08-19 09:30] VITALS: BP 141/86; PULSE 79; RESP 18; TEMP 37; O2SAT 98; BMI 30.1
--- NOTE | 2022-08-19 09:36 | EXP.UTC ---
Discharge Plan Disposition Patient Disposition: Home, Self-Care Condition: Good Prescriptions Prescriptions: New benzonatate 100 mg capsule 100 mg PO TID PRN (Reason: cough) Qty: 30 0RF amoxicillin-pot clavulanate 875-125 mg Tablet 1 tab PO Q12H Qty: 14 0RF prednisone [prednisone] 20 mg tablet 20 mg PO BID 5 Days Qty: 10 0RF Referrals Follow up/Referrals: Esdras Jj MD [Primary Care Provider] - See instructions Activity Restrictions/Add. Instructions Additional Instructions/Restrictions: *Monitor Temp, Over the counter Motrin or Tylenol as directed/as needed Tylenol every 4 hours and Motrin every 6 hours (as long as your family doctor has told you that you can take it) for fever or pain. and straight to ER if unable to lower temp less than 101.0 after medication given *Warm salt water gargles may help to soothe the throat *Throat Lozenges? *Warm fluids like tea with honey may help to soothe the throat? *Sleep elevated *Humidifier/Vaporizer Your throat swab was sent for culture. Those results are typically sent to your primary care. Be sure to follow up in 2-3 days with your family doctor/primary care physician if no improvement so they can review those result and treat if necessary. If you don?t have a primary care doctor, I recommend you get one but in the mean time, you will have to return to a walk in clinic Follow up IMMEDIATELY for new or worsening symptoms or no Noticeable improvement over the next 48-72 hours. 911 for difficulty breathing or swallowing Clinical Impressions Clinical Impression: Sinusitis Stand Alone Forms Stand Alone Forms: Work/School Release Instructions Patient Instructions: Sinusitis, DI for Sinusitis Discharge ED Provider: Emily Silva [facility] [place] General Stated complaint: congestion, cough, [place], fever Time Seen by Provider: 08/19/22 09:36 History of Present Illness Provider Complaint: Patient states that he has been having sore throat, sinus congestion and pressure, headache and cough States that today he was having some body aches, and chills so he came in to get checked out Related Data Previous Rx's Medication Instructions Recorded amoxicillin 875 mg-potassium 1 tab PO Q12H #14 tabs 08/19/22 clavulanate 125 mg tablet benzonatate 100 mg capsule 100 mg PO TID PRN cough #30 caps 08/19/22 prednisone 20 mg tablet 20 mg PO BID 5 days #10 tabs 08/19/22 Allergies Allergy/AdvReac Type Severity Reaction Status Date / Time No Known Allergies Allergy Verified 01/19/21 10:50 [facility] Disclaimer: The information contained in this section may have been updated after the patient was seen, as this information can be updated by other users. Medical History (Updated 08/19/22 @ 09:52 by Emily Silva APRN) Hypertension Migraine Social History (Updated 08/19/22 @ 09:46 by Kylie Dowell RN) Smoking Status: Current every day smoker tobacco type: cigarettes packs per day: 1 second hand exposure: No alcohol intake: never substance use type: denies use current occupational status: other Travel in the last 8 weeks: None housing: house current occupational exposures/hazards: No caffeine: No ROS Obtained: Yes All systems reviewed & no additional complaints except as documented and Yes Systems reviewed as appropriate & no additional complaints except as documented Constitutional Constitutional: Reports system reviewed and no additional complaints, except as documented, Reports as per HPI, Reports body ache, Reports chills, Reports fever(s) and Reports headache(s) ENT Ears, Nose, Mouth, and Throat: Reports system reviewed and no additional complaints, except as documented, Reports as per HPI, Reports headache(s), Reports sinus pain, Reports sinus pressure and Reports sore throat Cardiovascular Cardiovascular: Reports system reviewed and no additional complaints, except as documented and Reports as per HPI Res
[2022-08-19 09:53] VITALS: BP 141/86; PULSE 79; RESP 18; TEMP 37; O2SAT 98
[2022-08-19 09:57] LABS: UTC Influenza A Antigen Negative (Negative); UTC Influenza B Antigen Negative (Negative)
[2022-08-19 09:57] LABS: UTC Strep Screen (Rapid) Negative (Negative)
== END 2022-08-19 10:03 | disposition home or self-care (01) ==
PROVIDERS: Emergency Provider Nurse Practitioner; PCP Internal Medicine Adolescent Medicine
DX: J32.9 Chronic sinusitis, unspecified (principal)
CPT/HCPCS: 87804; 87880; 99212; 99213; G0463

== ENCOUNTER 2022-10-09 16:27 | Emergency (ER) | payer BC, OTHER, SELFPAY ==
[2022-10-09 16:35] VITALS: BP 125/78; PULSE 68; RESP 18; TEMP 36.9; O2SAT 99; BMI 29.1
--- NOTE | 2022-10-09 17:01 | EXP.UTC ---
Discharge Plan Disposition Patient Disposition: Home, Self-Care Condition: Good Prescriptions Prescriptions: New metronidazole 500 mg tablet 500 mg PO TID Qty: 30 0RF ciprofloxacin HCl [Cipro] 500 mg tablet 500 mg PO BID Qty: 20 0RF Referrals Follow up/Referrals: Liza Hinojosa DO [Primary Care Provider] - See instructions Activity Restrictions/Add. Instructions Additional Instructions/Restrictions: Call make appointment with Your GI physician Follow up with your Family Doctor Return if needed Straight to ER if any life threatening symptoms Clinical Impressions Clinical Impression: Colitis Stand Alone Forms Stand Alone Forms: Work/School Release Instructions Patient Instructions: DI for Diverticulosis, DI for Colitis Discharge ED Provider: Eimly Silva [facility] [place] HPI General Stated complaint: abd pain Mode of Arrival: Ambulatory Source of Information: Patient Limitations: No Limitations Time Seen by Provider: 10/09/22 17:01 Description of Symptoms (Recalled from Triage Doc. by RN): PATIENT C/O STOMACH CRAMPS AND DIARRHEA SINCE FRIDAY. HE STATES HE THINKS HIS COLITIS FLARED UP HEENT Symptoms (Recalled from RN notes): No Resp Symptoms (Recalled from RN notes): No Skin Symptoms (Recalled from RN notes): No MS Symptoms (Recalled from RN notes): No Functional Status (Recalled from RN notes): WNL History of Present Illness Provider Complaint: Patient states he has a history of Colitis and Diverticulosis states that he eat something he wasnt suppose to and thinks he is having a flare up States that he tried metamucil and stuff and it hasnt helped States that he has had to come in at times and get antibiotics to get it under control and has cramping and diarrhea Related Data Previous Rx's Medication Instructions Recorded ciprofloxacin HCl 500 mg tablet 500 mg PO BID #20 tabs 10/09/22 (Cipro) metronidazole 500 mg tablet 500 mg PO TID #30 tabs 10/09/22 Allergies Allergy/AdvReac Type Severity Reaction Status Date / Time No Known Allergies Allergy Verified 10/04/22 09:02 Worker's Comp Is this a Worker's Comp case?: No [facility] Disclaimer: The information contained in this section may have been updated after the patient was seen, as this information can be updated by other users. Medical History Abdominal pain Abscess of right hand Atypical chest pain Cellulitis of finger of left hand Cellulitis of right hand Colitis Diarrhea Exposure to COVID-19 virus Exposure to COVID-19 virus Gastritis Hypertension Influenza Migraine Patient left without being seen Rectal bleeding Sinusitis Viral syndrome Social History Smoking Status: Current every day smoker tobacco type: cigarettes packs per day: 1 second hand exposure: No alcohol intake: never substance use type: denies use current occupational status: other Travel in the last 8 weeks: None housing: house current occupational exposures/hazards: No caffeine: No ROS Obtained: Yes All systems reviewed & no additional complaints except as documented and Yes Systems reviewed as appropriate & no additional complaints except as documented Constitutional Constitutional: Reports system reviewed and no additional complaints, except as documented and Reports as per HPI ENT Ears, Nose, Mouth, and Throat: Reports system reviewed and no additional complaints, except as documented and Reports as per HPI Cardiovascular Cardiovascular: Reports system reviewed and no additional complaints, except as documented and Reports as per HPI Respiratory Respiratory: Reports system reviewed and no additional complaints, except as documented and Reports as per HPI Gastrointestinal Gastrointestingal: Reports system reviewed and no additional complaints, except as documented, as per HPI, abdominal pain, cramping and diarrhea Physical Ex
[2022-10-09 17:31] VITALS: BP 125/78; PULSE 68; RESP 18; TEMP 36.9; O2SAT 99
== END 2022-10-09 17:37 | disposition home or self-care (01) ==
PROVIDERS: Emergency Provider Nurse Practitioner; PCP Family Medicine
DX: K52.9 Noninfective gastroenteritis and colitis, unspecified (principal)
CPT/HCPCS: 99212; 99214; G0463

== ENCOUNTER 2022-12-25 10:38 | Emergency (ER) | payer BC, SELFPAY ==
[2022-12-25 10:39] VITALS: BP 139/94; PULSE 64; RESP 16; TEMP 36.8; O2SAT 98; BMI 28.5
--- NOTE | 2022-12-25 10:50 | EXP.UTC ---
Discharge Plan Disposition Patient Disposition: Home, Self-Care Condition: Good Prescriptions Prescriptions: New ciprofloxacin HCl [Cipro] 500 mg tablet 500 mg PO BID 10 Days Qty: 20 0RF ondansetron 4 mg Tablet,Disintegrating 4 mg PO Q8H PRN (Reason: Nausea) Qty: 12 0RF No Action metronidazole 500 mg tablet 500 mg PO TID Qty: 30 0RF ciprofloxacin HCl [Cipro] 500 mg tablet 500 mg PO BID Qty: 20 0RF Referrals Follow up/Referrals: Esdras Jj MD [Primary Care Provider] - See instructions Activity Restrictions/Add. Instructions Additional Instructions/Restrictions: Drink plenty of fluids. Take the medications as directed. Follow up with your regular doctor. GO TO THE ER FOR ANY WORSENING SYMPTOMS Clinical Impressions Clinical Impression: Diverticulitis Stand Alone Forms Stand Alone Forms: Work/School Release Instructions Patient Instructions: Diverticulitis, DI for Diverticulitis Discharge ED Provider: Henry Anne [facility] [place] General Stated complaint: diarrhea, upset stomach Mode of Arrival: Ambulatory Limitations: No Limitations Time Seen by Provider: 12/25/22 10:50 Description of Symptoms (Recalled from Triage Doc. by RN): Patient states he just came back from [place] and ate a lot of different stuff and now his diverticulitis is acting up. HEENT Symptoms (Recalled from RN notes): No Resp Symptoms (Recalled from RN notes): No Skin Symptoms (Recalled from RN notes): No MS Symptoms (Recalled from RN notes): No Functional Status (Recalled from RN notes): wnl History of Present Illness Provider Complaint: He states that he is having a diverticulitis flare up that has caused him to miss work the past 2 days. He needs a work excuse Related Data Previous Rx's Medication Instructions Recorded ciprofloxacin HCl 500 mg tablet 500 mg PO BID #20 tabs 10/09/22 (Cipro) metronidazole 500 mg tablet 500 mg PO TID #30 tabs 10/09/22 ciprofloxacin HCl 500 mg tablet 500 mg PO BID 10 days #20 tabs 12/25/22 (Cipro) ondansetron 4 mg disintegrating 4 mg PO Q8H PRN Nausea #12 tabs 12/25/22 tablet Allergies Allergy/AdvReac Type Severity Reaction Status Date / Time No Known Allergies Allergy Verified 10/04/22 09:02 Worker's Comp Is this a Worker's Comp case?: No [facility] Disclaimer: The information contained in this section may have been updated after the patient was seen, as this information can be updated by other users. Medical History Abdominal pain Abscess of right hand Atypical chest pain Cellulitis of finger of left hand Cellulitis of right hand Colitis Diarrhea Exposure to COVID-19 virus Exposure to COVID-19 virus Gastritis Hypertension Influenza Migraine Patient left without being seen Rectal bleeding Sinusitis Viral syndrome Social History Smoking Status: Current every day smoker tobacco type: cigarettes packs per day: 1 second hand exposure: No alcohol intake: never substance use type: denies use current occupational status: other Travel in the last 8 weeks: None housing: house current occupational exposures/hazards: No caffeine: No ROS Obtained: Yes All systems reviewed & no additional complaints except as documented Constitutional Constitutional: Denies chills, Denies fever(s) and Reports poor appetite ENT Ears, Nose, Mouth, and Throat: Denies dizziness and Denies sore throat Cardiovascular Cardiovascular: Denies dyspnea Respiratory Respiratory: Denies chest congestion, Denies cough and Denies dyspnea Gastrointestinal Gastrointestingal: Reports as per HPI Genitourinary Male Genitourinary: Denies hematuria, Denies urinary frequency, Denies urinary hesitancy, Denies urinary incontinence and Denies urinary urgency Musculoskeletal Musculoskeletal: Denies arthralgias Integumentary/Breasts Skin/Breast: Denies rash Neuro
[2022-12-25 11:32] VITALS: BP 139/94; PULSE 64; RESP 16; TEMP 36.8; O2SAT 98
== END 2022-12-25 11:33 | disposition home or self-care (01) ==
PROVIDERS: Emergency Provider Nurse Practitioner Family; PCP Internal Medicine Adolescent Medicine
DX: K57.92 Diverticulitis of intestine, part unspecified, without perforation or abscess without bleeding (principal); R11.0 Nausea; R19.7 Diarrhea, unspecified; F17.210 Nicotine dependence, cigarettes, uncomplicated; I10 Essential (primary) hypertension
CPT/HCPCS: 99212; 99214; G0463

== ENCOUNTER 2023-02-07 13:07 | Emergency (ER) | payer BC, SELFPAY ==
[2023-02-07 13:15] VITALS: BP 140/78; PULSE 61; RESP 20; TEMP 36.8; O2SAT 97; BMI 28.8
--- NOTE | 2023-02-07 13:28 | EXP.UTC ---
Discharge Plan Disposition Patient Disposition: Home, Self-Care Condition: Good Prescriptions Prescriptions: No Action metronidazole 500 mg tablet 500 mg PO TID Qty: 30 0RF ciprofloxacin HCl [Cipro] 500 mg tablet 500 mg PO BID Qty: 20 0RF ciprofloxacin HCl [Cipro] 500 mg tablet 500 mg PO BID 10 Days Qty: 20 0RF ondansetron 4 mg Tablet,Disintegrating 4 mg PO Q8H PRN (Reason: Nausea) Qty: 12 0RF Referrals Follow up/Referrals: Esdras Jj MD [Primary Care Provider] - See instructions Activity Restrictions/Add. Instructions Additional Instructions/Restrictions: Liquid diet and probiotics may help with symptoms Follow up with your Family Doctor in the next couple of days if symptoms do not improve or immediately if any worsening of symptoms Return if needed Straight to ER if any life threatening symptoms Clinical Impressions Clinical Impression: Diarrhea Qualifiers: Diarrhea type: unspecified type Qualified Code(s): R19.7 - Diarrhea, unspecified Stand Alone Forms Stand Alone Forms: Work/School Release Instructions Patient Instructions: Diarrhea, DI for Diverticulitis Discharge ED Provider: Emily Silva [facility] General Stated complaint: Abd pain diarrhea Mode of Arrival: Ambulatory Source of Information: Patient Limitations: No Limitations Time Seen by Provider: 02/07/23 13:28 Description of Symptoms (Recalled from Triage Doc. by RN): PATIENT STOMACH CRAMPING AND DIARRHEA X 3 DAYS HEENT Symptoms (Recalled from RN notes): No Resp Symptoms (Recalled from RN notes): No Skin Symptoms (Recalled from RN notes): No MS Symptoms (Recalled from RN notes): No Functional Status (Recalled from RN notes): WNL History of Present Illness Provider Complaint: Patient states that he has a history of diverticulitis States that he started about 3 days ago with diarrhea like he gets when he has a flare States that he started taking his metamucil and following strict diet States that today he is better but was unable to go to work so he came in to get checked and get a note for work Related Data Previous Rx's Medication Instructions Recorded ciprofloxacin HCl 500 mg tablet 500 mg PO BID #20 tabs 10/09/22 (Cipro) metronidazole 500 mg tablet 500 mg PO TID #30 tabs 10/09/22 ciprofloxacin HCl 500 mg tablet 500 mg PO BID 10 days #20 tabs 12/25/22 (Cipro) ondansetron 4 mg disintegrating 4 mg PO Q8H PRN Nausea #12 tabs 12/25/22 tablet Allergies Allergy/AdvReac Type Severity Reaction Status Date / Time No Known Allergies Allergy Verified 10/04/22 09:02 Worker's Comp Is this a Worker's Comp case?: No [facility] Disclaimer: The information contained in this section may have been updated after the patient was seen, as this information can be updated by other users. Medical History Abdominal pain Abscess of right hand Atypical chest pain Cellulitis of finger of left hand Cellulitis of right hand Colitis Diarrhea Exposure to COVID-19 virus Exposure to COVID-19 virus Gastritis Hypertension Influenza Migraine Patient left without being seen Rectal bleeding Sinusitis Viral syndrome Social History Smoking Status: Current every day smoker tobacco type: cigarettes packs per day: 1 second hand exposure: No alcohol intake: never substance use type: denies use current occupational status: other Travel in the last 8 weeks: None housing: house current occupational exposures/hazards: No caffeine: No ROS Obtained: Yes All systems reviewed & no additional complaints except as documented and Yes Systems reviewed as appropriate & no additional complaints except as documented Constitutional Constitutional: Reports system reviewed and no additional complaints, except as documented, Reports as per HPI, Denies body ache, Denies chills and Denies fever(s) ENT Ears, Nose, Mouth, a
[2023-02-07 13:38] VITALS: BP 140/78; PULSE 61; RESP 20; TEMP 36.8; O2SAT 97
== END 2023-02-07 13:39 | disposition home or self-care (01) ==
PROVIDERS: Emergency Provider Nurse Practitioner; PCP Internal Medicine Adolescent Medicine
DX: R10.9 Unspecified abdominal pain (principal); R19.7 Diarrhea, unspecified; I10 Essential (primary) hypertension; G43.919 Migraine, unspecified, intractable, without status migrainosus; F17.210 Nicotine dependence, cigarettes, uncomplicated
CPT/HCPCS: 99212; 99213; G0463

== ENCOUNTER 2023-03-16 16:27 | Emergency (ER) | payer BC, SELFPAY ==
[2023-03-16 16:27] VITALS: BP 145/93; PULSE 69; RESP 18; TEMP 36.7; O2SAT 99; BMI 28.5
[2023-03-16 16:50] LABS: Microscopic, Urine URINE MICROSCOPIC (MICROSCOPIC)
[2023-03-16 17:00] LABS: Appearance,Urine CLEAR (Clear); Bilirubin,Urine Negative (Negative); Blood, Urine Negative (Negative); Color,Urine YELLOW (Yellow); Glucose,Urine (UA) Negative (Negative); Ketones,Urine Negative (Negative); Leukocyte Esterase,Urine Negative (Negative); Nitrate,Urine Negative (Negative); Protein,Urine Negative (Negative); Specific Gravity, Urine >= 1.030 (1.005-1.030); Urobilinogen,Urine 0.2 EU/dl (0.2)
--- NOTE | 2023-03-16 17:03 | EXP.UTC ---
Discharge Plan Disposition Patient Disposition: Home, Self-Care Condition: Good Prescriptions Prescriptions: New naproxen 500 mg tablet 500 mg PO Q12H PRN (Reason: pain) Qty: 20 0RF methocarbamol 750 mg tablet 750 mg PO Q8H PRN (Reason: pain) Qty: 20 0RF No Action metronidazole 500 mg tablet 500 mg PO TID Qty: 30 0RF ciprofloxacin HCl [Cipro] 500 mg tablet 500 mg PO BID Qty: 20 0RF ciprofloxacin HCl [Cipro] 500 mg tablet 500 mg PO BID 10 Days Qty: 20 0RF ondansetron 4 mg Tablet,Disintegrating 4 mg PO Q8H PRN (Reason: Nausea) Qty: 12 0RF Referrals Follow up/Referrals: Esdras Jj MD [Primary Care Provider] - See instructions Activity Restrictions/Add. Instructions Additional Instructions/Restrictions: You were evaluated in the emergency department today. At this time, we feel that you are having musculoskeletal back pain from a muscle sprain. Please clam picker your prescriptions at the pharmacy and take them as needed for pain. You may also take Tylenol in addition to these medications. Do not take ibuprofen or Aleve while taking naproxen. Follow-up with your primary care provider. Return to the emergency department for any new or worsening symptoms. Clinical Impressions Clinical Impression: Acute left-sided low back pain Qualifiers: Sciatica presence: without sciatica Qualified Code(s): M54.50 - Low back pain, unspecified Stand Alone Forms Stand Alone Forms: Work/School Release Instructions Patient Instructions: DI for Low Back Pain Discharge ED Provider: Lindsay Longo [facility] General Chief complaint: Back Pain/Injury Stated complaint: Lt side back pain Mode of Arrival: Ambulatory Source of Information: Patient Limitations: No Limitations Time Seen by Provider: 03/16/23 17:03 Description of Symptoms (Recalled from Triage Doc. by RN): Patient reports middle left back pain that started yesterday. States it feels like it did when he had a kidney stone. HEENT Symptoms (Recalled from RN notes): No Resp Symptoms (Recalled from RN notes): No Skin Symptoms (Recalled from RN notes): No MS Symptoms (Recalled from RN notes): Yes Functional Status (Recalled from RN notes): wnl Related Data Previous Rx's Medication Instructions Recorded ciprofloxacin HCl 500 mg tablet 500 mg PO BID #20 tabs 10/09/22 (Cipro) metronidazole 500 mg tablet 500 mg PO TID #30 tabs 10/09/22 ciprofloxacin HCl 500 mg tablet 500 mg PO BID 10 days #20 tabs 12/25/22 (Cipro) ondansetron 4 mg disintegrating 4 mg PO Q8H PRN Nausea #12 tabs 12/25/22 tablet methocarbamol 750 mg tablet 750 mg PO Q8H PRN pain #20 tabs 03/16/23 naproxen 500 mg tablet 500 mg PO Q12H PRN pain #20 tabs 03/16/23 Allergies Allergy/AdvReac Type Severity Reaction Status Date / Time No Known Allergies Allergy Verified 10/04/22 09:02 Worker's Comp Is this a Worker's Comp case?: No [facility] Disclaimer: The information contained in this section may have been updated after the patient was seen, as this information can be updated by other users. Medical History Abdominal pain Abscess of right hand Atypical chest pain Cellulitis of finger of left hand Cellulitis of right hand Colitis Diarrhea Exposure to COVID-19 virus Exposure to COVID-19 virus Gastritis Hypertension Influenza Migraine Patient left without being seen Rectal bleeding Sinusitis Viral syndrome Social History Smoking Status: Current every day smoker tobacco type: cigarettes packs per day: 1 second hand exposure: No alcohol intake: never substance use type: denies use current occupational status: other Travel in the last 8 weeks: None housing: house current occupational exposures/hazards: No caffeine: No ROS Obtained: Yes All systems reviewed & no additional complaints except as documented Constitutional Constit
[2023-03-16 17:14] VITALS: BP 144/99; PULSE 66; RESP 18; TEMP 36.8; O2SAT 99; BMI 28.5
[2023-03-16 17:23] LABS: Squamous Epithelial Cell,Urine Occasional #/hpf (0-5); WBC,Urine Occasional #/hpf (0-3)
[2023-03-16 17:31] VITALS: BP 123/69; PULSE 55; O2SAT 96
[2023-03-16 17:31] LABS: Basophils # 0.1 K/mm3 (0-0.2); Basophils % 0.8 % (0.1-2.0); Eosinophils # 0.2 K/mm3 (0.0-0.4); Hematocrit 50.2 % (42.0-52.0); Hemoglobin 16.4 g/dL (14.1-18.0); Lymphocytes # 3.6 K/mm3 (0.7-4.5); Lymphocytes % 45.7 % (10-50); Mean Corpuscular HGB Conc 32.6 g/dL (31.8-35.4); Mean Corpuscular Hemoglobin 30.6 pg (27.0-31.2); Mean Corpuscular Volume 93.8 fl (80-94); Mean Platelet Volume 8.4 fl (7.4-10.4); Monocytes # 0.6 K/mm3 (0.1-1.0); Neutrophils # 3.4 K/mm3 (1.8-7.8); Neutrophils % 43.5 % (37.0-80.0); Platelet Count 184 K/mm3 (142-424); Red Blood Count 5.35 M/mm3 (4.60-6.20); White Blood Count 7.9 K/mm3 (4.8-10.8)
[2023-03-16 17:32] LABS: Chloride 105 mmol/L (98-107); Potassium 4.4 mmoL/L (3.5-5.1); Sodium 140 mmol/L (136-145)
[2023-03-16 17:35] LABS: Alanine Aminotransferase 28 U/L (12-78); Albumin Level 4.2 g/dl (3.5-5.0); Albumin/Globulin Ratio 1.3 (1.1-1.8); Alkaline Phosphatase 54 U/L (38-126); Anion Gap 12.4 mEq/L (5-15); Aspartate Amino Transferase 35 U/L (17-59); Bilirubin,Total 0.3 mg/dl (0.2-1.3); Blood Urea Nitrogen 12 mg/dl (9-20); Calcium 9.6 mg/dl (8.4-10.2); Carbon Dioxide 27 mmol/L (22.0-30.0); Creatinine Clearance Estimated 151 mL/min (50-200); Estimated Glomerular Filt Rate 96 ml/min (>60); GFR (African American) 116 ML/MIN (>60); Globulin 3.3 g/dL (1.3-3.2); Glucose 105 mg/dl (74-100); Total Protein,Serum 7.5 g/dl (6.3-8.2)
--- NOTE | 2023-03-16 17:37 | HMH.EDGENADL ---
Discharge Plan Disposition Patient Disposition: Home, Self-Care Condition: Good Prescriptions Prescriptions: New naproxen 500 mg tablet 500 mg PO Q12H PRN (Reason: pain) Qty: 20 0RF methocarbamol 750 mg tablet 750 mg PO Q8H PRN (Reason: pain) Qty: 20 0RF No Action metronidazole 500 mg tablet 500 mg PO TID Qty: 30 0RF ciprofloxacin HCl [Cipro] 500 mg tablet 500 mg PO BID Qty: 20 0RF ciprofloxacin HCl [Cipro] 500 mg tablet 500 mg PO BID 10 Days Qty: 20 0RF ondansetron 4 mg Tablet,Disintegrating 4 mg PO Q8H PRN (Reason: Nausea) Qty: 12 0RF Referrals Follow up/Referrals: Esdras Jj MD [Primary Care Provider] - See instructions Activity Restrictions/Add. Instructions Additional Instructions/Restrictions: You were evaluated in the emergency department today. At this time, we feel that you are having musculoskeletal back pain from a muscle sprain. Please continuous pickling line pickler your prescriptions at the pharmacy and take them as needed for pain. You may also take Tylenol in addition to these medications. Do not take ibuprofen or Aleve while taking naproxen. Follow-up with your primary care provider. Return to the emergency department for any new or worsening symptoms. Clinical Impressions Clinical Impression: Acute left-sided low back pain Qualifiers: Sciatica presence: without sciatica Qualified Code(s): M54.50 - Low back pain, unspecified Stand Alone Forms Stand Alone Forms: Work/School Release Instructions Patient Instructions: DI for Low Back Pain Discharge ED Provider: Lindsay Longo General Adult HPI General Chief complaint: Back Pain/Injury Stated complaint: Lt side back pain Time Seen by Provider: 03/16/23 17:03 Mode of Arrival: Ambulatory Source of Information: Patient Limitations: No Limitations Description of Symptoms (Recalled from ER Triage Doc. by RN): PT C/O LEFT MID BACK PAIN THAT STARTED YESTERDAY, DOES NOT RADIATE. DENIES URINARY SYMPTOMS. REPORTS HX OF KIDNEY STONES, REPORTS PAIN FEELS SIMILAR History of Present Illness HPI narrative: This patient is a 33-year-old male with a history of kidney stones and diverticulitis presenting to the emergency department for evaluation with concern for left-sided low back pain. He reports that it started yesterday when he was moving and moving his trampoline. He states that it is worse with any movement and is tender to palpation. Being still makes it better. He states that it felt kind of similar to prior kidney stones, so he wanted to come in to get evaluated. No radiation, no numbness, tingling, saddle anesthesia, or other concerns. He denies any fevers, chills, nausea, vomiting, changes in bowel movements, dysuria, hematuria, or other issues. Related Data Previous Rx's Medication Instructions Recorded ciprofloxacin HCl 500 mg tablet 500 mg PO BID #20 tabs 10/09/22 (Cipro) metronidazole 500 mg tablet 500 mg PO TID #30 tabs 10/09/22 ciprofloxacin HCl 500 mg tablet 500 mg PO BID 10 days #20 tabs 12/25/22 (Cipro) ondansetron 4 mg disintegrating 4 mg PO Q8H PRN Nausea #12 tabs 12/25/22 tablet methocarbamol 750 mg tablet 750 mg PO Q8H PRN pain #20 tabs 03/16/23 naproxen 500 mg tablet 500 mg PO Q12H PRN pain #20 tabs 03/16/23 Allergies Allergy/AdvReac Type Severity Reaction Status Date / Time No Known Allergies Allergy Verified 10/04/22 09:02 [facility] Disclaimer: The information contained in this section may have been updated after the patient was seen, as this information can be updated by other users. Medical History Abdominal pain Abscess of right hand Atypical chest pain Cellulitis of finger of left hand Cellulitis of right hand Colitis Diarrhea Exposure to COVID-19 virus Exposure to COVID-19 virus Gastritis Hypertension Influenza Migraine Patient left without being seen Rectal bleeding Sinusitis Viral syndrome Social History (Reviewed
--- NOTE | 2023-03-16 17:53 | PC.NURSE ---
Rounded on pt. No needs or complaints voiced at this time.
[2023-03-16 18:11] VITALS: BP 135/68; PULSE 79; RESP 20; TEMP 36.7; O2SAT 98
== END 2023-03-16 18:14 | disposition home or self-care (01) ==
LOC: UTC 16:30 → ER 17:12
PROVIDERS: Nurse Practitioner Family; Emergency Provider Emergency Medicine; PCP Internal Medicine Adolescent Medicine
DX: M54.6 Pain in thoracic spine (principal); M54.50 Low back pain, unspecified; I10 Essential (primary) hypertension; F17.210 Nicotine dependence, cigarettes, uncomplicated
CPT/HCPCS: 80053; 81001; 85025; 87086; 87088; 87186; 96374; 99284

== ENCOUNTER 2023-05-02 12:42 | Emergency (ER) | payer BC, SELFPAY ==
[2023-05-02 12:45] VITALS: BP 122/83; PULSE 61; RESP 20; TEMP 36.8; O2SAT 98; BMI 28.1
--- NOTE | 2023-05-02 12:55 | EXP.UTC ---
Discharge Plan Disposition Patient Disposition: Home, Self-Care Condition: Good Prescriptions Prescriptions: New amoxicillin [amoxicillin] 875 mg tablet 875 mg PO Q12H Qty: 20 0RF benzonatate [benzonatate] 100 mg capsule 100 mg PO TIDP PRN (Reason: Cough) Qty: 30 0RF methylprednisolone 4 mg Tablets,Dose Pack 4 mg PO DIRECTED Qty: 21 0RF Referrals Follow up/Referrals: Rios Bishop APRN [Primary Care Provider] - See instructions Activity Restrictions/Add. Instructions Additional Instructions/Restrictions: Drink plenty of fluids. Take tylenol or ibuprofen for pain or fever. Take the medications as directed. Follow up with your regular doctor. GO TO THE ER FOR ANY WORSENING SYMPTOMS Clinical Impressions Clinical Impression: Pharyngitis, Acute viral syndrome Stand Alone Forms Stand Alone Forms: Work/School Release Instructions Patient Instructions: DI for Pharyngitis/Tonsillopharyngitis -- Adult Discharge ED Provider: Henry Anne [facility] General Stated complaint: sore throat, congestion, stomach ache Time Seen by Provider: 05/02/23 12:55 History of Present Illness Provider Complaint: He states that for the past 2 days he has had sore throat, chills, and malaise. Related Data Previous Rx's Medication Instructions Recorded amoxicillin 875 mg tablet 875 mg PO Q12H #20 tabs 05/02/23 benzonatate 100 mg capsule 100 mg PO TIDP PRN Cough #30 caps 05/02/23 methylprednisolone 4 mg tablets in 4 mg PO DIRECTED #21 tabs 05/02/23 a dose pack Allergies Allergy/AdvReac Type Severity Reaction Status Date / Time No Known Allergies Allergy Verified 04/30/23 13:26 [facility] Disclaimer: The information contained in this section may have been updated after the patient was seen, as this information can be updated by other users. Medical History Abdominal pain Abscess of right hand Atypical chest pain Cellulitis of finger of left hand Cellulitis of right hand Colitis Diarrhea Exposure to COVID-19 virus Exposure to COVID-19 virus Gastritis Hypertension Influenza Migraine Patient left without being seen Rectal bleeding Sinusitis Viral syndrome Social History Smoking Status: Current every day smoker tobacco type: cigarettes packs per day: 1 second hand exposure: No alcohol intake: never substance use type: denies use current occupational status: other Travel in the last 8 weeks: None housing: house current occupational exposures/hazards: No caffeine: No ROS Obtained: Yes All systems reviewed & no additional complaints except as documented Constitutional Constitutional: Reports body ache, Reports chills and Denies fever(s) Eyes Eyes: Denies eye discharge ENT Ears, Nose, Mouth, and Throat: Reports as per HPI Cardiovascular Cardiovascular: Denies chest pain Respiratory Respiratory: Denies chest congestion and Reports cough Gastrointestinal Gastrointestingal: Reports nausea; Denies abdominal pain, constipation, cramping, diarrhea or vomiting Musculoskeletal Musculoskeletal: Denies arthralgias Integumentary/Breasts Skin/Breast: Denies rash Neurologic Neurologic: Denies paresthesias Physical Exam General General appearance: alert and in no apparent distress Head Head exam: atraumatic, normocephalic and normal inspection Eye Eye exam: Present normal appearance, PERRL and EOMI ENT ENT exam: Present mucous membranes moist and normal external ear exam Expanded ENT Exam TM/Canal exam: Bilateral TM: erythema and bulging Nose exam: Absent sinus tenderness Mouth exam: Present normal external inspection; Absent drooling Teeth exam: Present normal inspection Throat exam: Present tonsillar erythema, tonsillomegaly and tonsillar exudate Neck Neck exam: Present normal inspection, full ROM and trachea midline; Absent tenderness, meningismus or lymp
[2023-05-02 13:03] LABS: UTC Strep Screen (Rapid) Negative (Negative)
[2023-05-02 13:28] VITALS: BP 122/83; PULSE 61; RESP 20; TEMP 36.8; O2SAT 98
== END 2023-05-02 13:30 | disposition home or self-care (01) ==
PROVIDERS: Emergency Provider Nurse Practitioner Family; PCP Nurse Practitioner Family
DX: J02.9 Acute pharyngitis, unspecified (principal); B34.9 Viral infection, unspecified; F17.210 Nicotine dependence, cigarettes, uncomplicated; I10 Essential (primary) hypertension
CPT/HCPCS: 87635; 87880; 99212; 99214; G0463

== ENCOUNTER 2023-05-08 17:00 | Outpatient (RCR) | payer BC, SELFPAY ==
--- NOTE | 2023-04-04 12:35 | HMH.PTOPEV ---
PT Outpatient Evaluation Rehab PT Outpatient Evaluation Start: 04/04/23 10:55 Freq: Status: Active Protocol: Document 04/04/23 10:57 JUANA (Rec: 04/04/23 12:35 JUANA [id number]) E-signed By Eleni Lai, PT Outpatient Therapy Subjective History Subjective History Pt presents to the PT clinic with reports of L sided back pain. Pt reports that last year he was lifting weights and felt a catch in the right side of his back. Pt reports that he also had a similar episode earlier this spring. Pt reports that he was moving a trampoline on 03/16/2023 when he felt a pop in R side of his back and caused him to fall. Pt reports that he continues to feel pain throughout the R side of his back and it is not improving. Pt denies reports of LE n/t or weakness. Pt reports that twisting or bending over to lift is what causes the most pain. Pt reports that sitting feels better than standing, but that he has pain when he goes to stand up. Pt reports that he works at [employer] . Pt reports that he has been off work since the accident. Pt reports that he has tried heat and massage at home to help. Pt reports that the doctor gave him a muscle relaxer and steroid pack to help but he has not noticed much improvement. PMH: diverticulitis New diagnosis of cancer in past 12 No months? Chief Complaint Pain,Spasms,Stiff,Gives out/ Unstable Symptom Type Ache,Sharp,Stabbing Symptoms Relieved By Rest/Positioning,Heat Symptoms Aggravated By Prone,Standing,Bending/ Stooping,Physical Activity, Twisting,Walking,Lifting Prior Functional Limitations None Current Functional Limitations Reaching,Lifting,Housework, Dressing,Driving,Sleeping,
== END 2023-05-08 17:05 | disposition home or self-care (01) ==
LOC: PT 17:00
PROVIDERS: PCP Nurse Practitioner Family; Visit Provider Nurse Practitioner Family
DX: M54.50 Low back pain, unspecified (principal); S39.012A Strain of muscle, fascia and tendon of lower back, initial encounter
CPT/HCPCS: 97010; 97014; 97035; 97110; 97140; 97163; 97530; G0283

== ENCOUNTER → 2023-06-26 09:14 | Outpatient (CLI) | payer BC, SELFPAY ==
[2023-06-26 18:31] LABS: Coronavirus 19, PCR Not Detected (NotDetected); Influenza A, PCR Not Detected (NotDetected); Influenza B, PCR Not Detected (NotDetected)
== END ==
PROVIDERS: PCP Nurse Practitioner Family; Visit Provider Family Medicine
DX: J02.9 Acute pharyngitis, unspecified (principal); B34.9 Viral infection, unspecified
CPT/HCPCS: 87636

== ENCOUNTER 2023-10-24 12:02 | Emergency (ER) | payer BC, SELFPAY ==
[2023-10-24 12:20] VITALS: BP 130/85; PULSE 60; RESP 20; TEMP 36.8; O2SAT 97; BMI 30.1
--- NOTE | 2023-10-24 12:21 | EXP.UTC ---
Discharge Plan Disposition Patient Disposition: Home, Self-Care Condition: Good Prescriptions Prescriptions: New ondansetron 4 mg Tablet,Disintegrating 4 mg PO Q8H PRN (Reason: Nausea) Qty: 9 0RF Referrals Follow up/Referrals: Esdras Jj MD [Primary Care Provider] - See instructions Activity Restrictions/Add. Instructions Additional Instructions/Restrictions: Drink plenty of fluids. Take tylenol for pain or fever. Take the medications as directed. Follow up with your regular doctor. GO TO THE ER FOR ANY WORSENING SYMPTOMS Clinical Impressions Clinical Impression: Gastroenteritis, Acute viral syndrome Stand Alone Forms Stand Alone Forms: Work/School Release Instructions Patient Instructions: Viral Gastroenteritis, DI for Viral Gastroenteritis -- Adult, Ondansetron Discharge ED Provider: Henry Anne [facility] General Stated complaint: vomitting, diarrhea Time Seen by Provider: 10/24/23 12:21 History of Present Illness Provider Complaint: He states that since yesterday he has had n/v/d. He denies any abdominal pain. Related Data Previous Rx's Medication Instructions Recorded ondansetron 4 mg disintegrating 4 mg PO Q8H PRN Nausea #9 tabs 10/24/23 tablet Allergies Allergy/AdvReac Type Severity Reaction Status Date / Time No Known Allergies Allergy Verified 06/26/23 09:11 [facility] Disclaimer: The information contained in this section may have been updated after the patient was seen, as this information can be updated by other users. Medical History Abdominal pain Abscess of right hand Atypical chest pain Cellulitis of finger of left hand Cellulitis of right hand Colitis Diarrhea Exposure to COVID-19 virus Exposure to COVID-19 virus Gastritis Hypertension Influenza Migraine Patient left without being seen Rectal bleeding Sinusitis Viral syndrome Social History Smoking Status: Current every day smoker tobacco type: cigarettes packs per day: 1 second hand exposure: No alcohol intake: never substance use type: denies use current occupational status: other Travel in the last 8 weeks: None housing: house current occupational exposures/hazards: No caffeine: No ROS Obtained: Yes All systems reviewed & no additional complaints except as documented Constitutional Constitutional: Denies chills, Denies fever(s) and Reports poor appetite ENT Ears, Nose, Mouth, and Throat: Denies dizziness and Denies sore throat Cardiovascular Cardiovascular: Denies dyspnea Respiratory Respiratory: Denies chest congestion, Denies cough and Denies dyspnea Gastrointestinal Gastrointestingal: Reports as per HPI, cramping, diarrhea, nausea and vomiting; Denies abdominal pain Musculoskeletal Musculoskeletal: Denies arthralgias Integumentary/Breasts Skin/Breast: Denies rash Neurologic Neurologic: Denies dizziness Physical Exam General General appearance: alert and in no apparent distress Head Head exam: atraumatic and normocephalic Eye Eye exam: Present normal appearance, PERRL and EOMI ENT ENT exam: Present normal exam, normal oropharynx, mucous membranes moist, TM's normal bilaterally and normal external ear exam Neck Neck exam: Present normal inspection, full ROM and trachea midline; Absent tenderness, meningismus or lymphadenopathy Chest Chest inspection: Present normal inspection and symmetric chest wall rise; Absent tenderness, rash or abscess Respiratory Respiratory exam: Present normal lung sounds bilaterally; Absent respiratory distress, wheezes or stridor Cardiovascular Cardiovascular exam: Present regular rate and normal rhythm; Absent irregular rhythm, systolic murmur, diastolic murmur or JVD Abdominal Exam Abdominal exam: Present soft and hyperactive bowel sounds; Absent distention, tenderness, guarding, rebound, rigidity, psoas sign, obturator sign, heel tap sign, Chauhan's sign, Rovsing's sign or tenderness at McBurney's Point Extremities Exam Extremities exam: Present normal inspection and full ROM; Absent tenderness Back Exam Back exam: Present normal inspection and full ROM; Absent tenderness, CVA tenderness (R) or CVA tenderness (L) Neurological Exam Neurological exam: Present alert, oriented X3 and CN II-XII intact Psychiatric Psychiatric exam: Present normal affect and normal mood Skin Skin exam: Present warm, dry, intact and normal color Lymphatic Lymphatic Findings: no adenopathy Medical Decision Making Medical Records Medical records reviewed: No I reviewed the patient's medical records. Danny Inquiry Pt receiving controlled substance: No Lab Data Lab results reviewed: Yes I reviewed the patient's lab results.
[2023-10-24 12:50] VITALS: BP 130/85; PULSE 60; RESP 20; TEMP 36.8; O2SAT 97
[2023-10-24 12:52] LABS: UTC Influenza A Antigen Negative (Negative); UTC Influenza B Antigen Negative (Negative)
== END 2023-10-24 12:55 | disposition home or self-care (01) ==
PROVIDERS: Emergency Provider Nurse Practitioner Family; PCP Internal Medicine Adolescent Medicine
DX: K52.9 Noninfective gastroenteritis and colitis, unspecified (principal); R11.2 Nausea with vomiting, unspecified; F17.210 Nicotine dependence, cigarettes, uncomplicated
CPT/HCPCS: 87804; 99212; 99214; G0463

== ENCOUNTER 2023-12-01 13:15 | Emergency (ER) | payer BC, SELFPAY ==
[2023-12-01 13:45] VITALS: BP 121/81; PULSE 58; RESP 18; TEMP 37.3; O2SAT 96; BMI 29.2
--- NOTE | 2023-12-01 13:47 | EXP.UTC ---
Discharge Plan Disposition Patient Disposition: Home, Self-Care Condition: Good Prescriptions Prescriptions: New benzonatate 100 mg capsule 100 mg PO TIDP PRN (Reason: Cough) Qty: 30 0RF methylprednisolone 4 mg Tablets,Dose Pack 4 mg PO DIRECTED 6 Days Qty: 21 0RF Rx Instructions: Take 1 pack as directed for 6 days amoxicillin-pot clavulanate 875-125 mg Tablet 1 tab PO Q12H Qty: 20 0RF Referrals Follow up/Referrals: Esdras Jj MD [Primary Care Provider] - See instructions Activity Restrictions/Add. Instructions Additional Instructions/Restrictions: Drink plenty of fluids. Take tylenol or ibuprofen for pain or fever. Take the medications as directed. Follow up with your regular doctor. GO TO THE ER FOR ANY WORSENING SYMPTOMS Clinical Impressions Clinical Impression: Pharyngitis, Sinusitis Stand Alone Forms Stand Alone Forms: Work/School Release Instructions Patient Instructions: DI for Pharyngitis/Tonsillopharyngitis -- Adult, DI for Sinusitis Discharge ED Provider: Henry Anne [facility] General Stated complaint: sore throat, congestion Time Seen by Provider: 12/01/23 13:46 History of Present Illness Provider Complaint: He states that for the past 5 days he has had worsening sinus congestion, ear pain, scratchy throat, and cough. Related Data Previous Rx's Medication Instructions Recorded amoxicillin 875 mg-potassium 1 tab PO Q12H #20 tabs 12/01/23 clavulanate 125 mg tablet benzonatate 100 mg capsule 100 mg PO TIDP PRN Cough #30 caps 12/01/23 methylprednisolone 4 mg tablets in 4 mg PO DIRECTED 6 days #21 tabs 12/01/23 a dose pack Allergies Allergy/AdvReac Type Severity Reaction Status Date / Time No Known Allergies Allergy Verified 12/01/23 14:04 [facility] Disclaimer: The information contained in this section may have been updated after the patient was seen, as this information can be updated by other users. Medical History (Reviewed 06/26/23 @ 09:11 by Jacque Causey [facility]) Abdominal pain Abscess of right hand Atypical chest pain Cellulitis of finger of left hand Cellulitis of right hand Colitis Diarrhea Exposure to COVID-19 virus Exposure to COVID-19 virus Gastritis Hypertension Influenza Migraine Patient left without being seen Rectal bleeding Sinusitis Viral syndrome Social History Smoking Status: Current every day smoker tobacco type: cigarettes packs per day: 1 second hand exposure: No alcohol intake: never substance use type: denies use current occupational status: other Travel in the last 8 weeks: None housing: house current occupational exposures/hazards: No caffeine: No ROS Obtained: Yes All systems reviewed & no additional complaints except as documented Constitutional Constitutional: Reports poor appetite Eyes Eyes: Reports system reviewed and no additional complaints, except as documented ENT Ears, Nose, Mouth, and Throat: Reports as per HPI Cardiovascular Cardiovascular: Reports system reviewed and no additional complaints, except as documented and Denies chest pain Respiratory Respiratory: Denies shortness of breath, Reports chest congestion, Reports cough, Denies stridor and Denies wheezing Gastrointestinal Gastrointestingal: Reports system reviewed and no additional complaints, except as documented; Denies abdominal pain, diarrhea or vomiting Musculoskeletal Musculoskeletal: Reports system reviewed and no additional complaints, except as documented and Denies arthralgias Integumentary/Breasts Skin/Breast: Reports system reviewed and no additional complaints, except as documented and Denies rash Neurologic Neurologic: Denies paresthesias Allergic/Immunologic Allergic/Immunologic: Denies wheezing Physical Exam General General appearance: alert and in no apparent distress Eye Eye exam: Present normal appearance, PERRL and EOMI ENT ENT exam: Present mucous membranes moist and normal external ear exam Expanded ENT Exam External ear exam: Present normal external inspection TM/Canal exam: Bilateral TM: erythema and bulging Nose exam: Absent sinus tenderness Nasal speculum exam: Bilateral: normal Mouth exam: Present normal external inspection; Absent drooling Teeth exam: Present normal inspection Throat exam: Present tonsillar erythema and tonsillomegaly Neck Neck exam: Present normal inspection, full ROM and trachea midline; Absent tenderness, lymphadenopathy or thyromegaly Chest Chest inspection: Present normal inspection and symmetric chest wall rise; Absent tenderness or rash Respiratory Respiratory exam: Present normal lung sounds bilaterally; Absent respiratory distress, wheezes, stridor or accessory muscle use Cardiovascular Cardiovascular exam: Present regular rate, normal rhythm and normal heart sounds Abdominal Exam Abdominal exam: Present soft; Absent distention, tenderness, guarding, rebound or rigidity Extremities Exam Extremities exam: Present normal inspection, full ROM and normal capillary refill; Absent tenderness or calf tenderness Back Exam Back exam: Present normal inspection and full ROM; Absent tenderness Neurological Exam Neurological exam: Present alert and oriented X3 Psychiatric Psychiatric exam: Present normal affect and normal mood Skin Skin exam: Present warm, dry, intact and normal color Lymphatic Lymphatic Findings: no adenopathy Medical Decision Making Medical Records Medical records reviewed: No I reviewed the patient's medical records. Danny Inquiry Pt receiving controlled substance: No
[2023-12-01 13:55] LABS: UTC Strep Screen (Rapid) Negative (Negative)
[2023-12-01 14:22] VITALS: BP 121/81; PULSE 58; RESP 18; TEMP 37.3; O2SAT 96
== END 2023-12-01 14:22 | disposition home or self-care (01) ==
PROVIDERS: Emergency Provider Nurse Practitioner Family; PCP Internal Medicine Adolescent Medicine
DX: J02.9 Acute pharyngitis, unspecified (principal); J01.90 Acute sinusitis, unspecified; R05.9 Cough, unspecified; H92.03 Otalgia, bilateral; R09.81 Nasal congestion; F17.210 Nicotine dependence, cigarettes, uncomplicated
CPT/HCPCS: 87880; 99212; 99214; G0463

== ENCOUNTER 2024-04-19 11:54 | Emergency (ER) | payer BC, SELFPAY ==
[2024-04-19 12:35] VITALS: BP 126/73; PULSE 56; RESP 20; TEMP 37; O2SAT 98; BMI 28.5
--- NOTE | 2024-04-19 12:43 | ED_ITS ---
Discharge Plan Disposition Patient Disposition: Home, Self-Care Condition: Good Prescriptions Prescriptions: New amoxicillin 875 mg tablet 875 mg PO Q12H Qty: 20 0RF benzonatate 100 mg capsule 100 mg PO TIDP PRN (Reason: Cough) Qty: 30 0RF methylprednisolone 4 mg Tablets,Dose Pack 4 mg PO DIRECTED 6 Days Qty: 21 0RF Rx Instructions: Take 1 pack as directed for 6 days Referrals Follow up/Referrals: Esdras Jj MD [Primary Care Provider] - See instructions Activity Restrictions/Add. Instructions Additional Instructions/Restrictions: Drink plenty of fluids. Take tylenol or ibuprofen for pain or fever. Take the medications as directed. Follow up with your regular doctor. GO TO THE ER FOR ANY WORSENING SYMPTOMS Clinical Impressions Clinical Impression: Pharyngitis, Acute viral syndrome Stand Alone Forms Stand Alone Forms: Work/School Release Instructions Patient Instructions: Sore Throat, DI for Pharyngitis/Tonsillopharyngitis -- Adult, DI for Viral Syndrome Print Language Print Language: Macedonian Discharge ED Provider: Henry Anne [facility] General Stated complaint: sore throat stomach pain Time Seen by Provider: 04/19/24 12:43 Related Data Previous Rx's ?Medication ?Instructions ?Recorded amoxicillin 875 mg tablet 875 mg PO Q12H #20 tabs 04/19/24 benzonatate 100 mg capsule 100 mg PO TIDP PRN Cough #30 caps 04/19/24 methylprednisolone 4 mg tablets in 4 mg PO DIRECTED 6 days #21 tabs 04/19/24 a dose pack Allergies Allergy/AdvReac Type Severity Reaction Status Date / Time No Known Allergies Allergy Verified 12/01/23 14:04 [facility] Disclaimer: The information contained in this section may have been updated after the patient was seen, as this information can be updated by other users. Medical History Abdominal pain Abscess of right hand Atypical chest pain Cellulitis of finger of left hand Cellulitis of right hand Colitis Diarrhea Exposure to COVID-19 virus Exposure to COVID-19 virus Gastritis Hypertension Influenza Migraine Patient left without being seen Rectal bleeding Sinusitis Viral syndrome Social History Smoking Status: Current every day smoker tobacco type: cigarettes packs per day: 1 second hand exposure: No alcohol intake: never substance use type: denies use current occupational status: other Travel in the last 8 weeks: None housing: house current occupational exposures/hazards: No caffeine: No ROS Obtained: Yes All systems reviewed & no additional complaints except as documented Constitutional Constitutional: Reports chills and Reports fever(s) Eyes Eyes: Denies eye discharge ENT Ears, Nose, Mouth, and Throat: Reports as per HPI Cardiovascular Cardiovascular: Denies chest pain Respiratory Respiratory: Denies chest congestion and Reports cough Gastrointestinal Gastrointestingal: Reports nausea; Denies abdominal pain, constipation, cramping, diarrhea or vomiting Musculoskeletal Musculoskeletal: Denies arthralgias Integumentary/Breasts Skin/Breast: Denies rash Neurologic Neurologic: Denies paresthesias Physical Exam General General appearance: alert and in no apparent distress Head Head exam: atraumatic, normocephalic and normal inspection Eye Eye exam: Present normal appearance, PERRL and EOMI ENT ENT exam: Present mucous membranes moist and normal external ear exam Expanded ENT Exam TM/Canal exam: Bilateral TM: erythema and bulging Nose exam: Absent sinus tenderness Mouth exam: Present normal external inspection; Absent drooling Teeth exam: Present normal inspection Throat exam: Present tonsillar erythema, tonsillomegaly and tonsillar exudate Neck Neck exam: Present normal inspection, full ROM and trachea midline; Absent tenderness, meningismus or lymphadenopathy Chest Chest inspection: Present normal inspection and symmetric chest wall rise; Absent tenderness Respiratory Respiratory exam: Present normal lung sounds bilaterally; Absent respiratory distress, wheezes, stridor or accessory muscle use Cardiovascular Cardiovascular exam: Present regular rate and normal rhythm; Absent systolic murmur or diastolic murmur Abdominal Exam Abdominal exam: Present soft and normal bowel sounds; Absent distention, tenderness, guarding, rebound or rigidity Extremities Exam Extremities exam: Present normal inspection and normal capillary refill; Absent calf tenderness Back Exam Back exam: Present normal inspection and full ROM; Absent tenderness, CVA tenderness (R) or CVA tenderness (L) Neurological Exam Neurological exam: Present alert, oriented X3 and CN II-XII intact Psychiatric Psychiatric exam: Present normal affect and normal mood Skin Skin exam: Present warm, dry, intact and normal color Medical Decision Making Medical Records Medical records reviewed: No I reviewed the patient's medical records. Screening: Per USPSTF and CDC recommendations, given the prevalence of disease in our region, it is our hospital?s policy to screen for HIV and viral Hepatitis for all patients aged 18 and over and those with ongoing risk factors. Danny Inquiry Pt receiving controlled substance: No Lab Data Lab results reviewed: Yes I reviewed the patient's lab results.
[2024-04-19 12:49] LABS: UTC Strep Screen (Rapid) Negative (Negative)
[2024-04-19 13:07] VITALS: BP 126/73; PULSE 56; RESP 20; TEMP 37; O2SAT 98
== END 2024-04-19 13:11 | disposition home or self-care (01) ==
PROVIDERS: Emergency Provider Nurse Practitioner Family; PCP Internal Medicine Adolescent Medicine
DX: J02.9 Acute pharyngitis, unspecified (principal); B34.9 Viral infection, unspecified
CPT/HCPCS: 87635; 87880; 99212; 99214; G0463

== ENCOUNTER 2025-04-25 11:35 | Outpatient (CLI) | payer BC, SELFPAY ==
[2025-04-25 16:08] LABS: Coronavirus 19, PCR Not Detected (NotDetected); Influenza A, PCR Not Detected (NotDetected); Influenza B, PCR Not Detected (NotDetected)
== END 2025-04-25 23:59 ==
LOC: LAB.DROPOF 04-26 03:22
PROVIDERS: PCP Nurse Practitioner; Visit Provider Nurse Practitioner
DX: J06.9 Acute upper respiratory infection, unspecified (principal)
CPT/HCPCS: 87631